=== PATIENT | male | born 1965 | race American Indian/Alaskan Native ===

== ENCOUNTER 2021-08-09 11:47 | Inpatient (IN) | payer OTHER, MEDICARE ==
--- NOTE | 2021-08-09 14:10 | Emergency Department Report ---
HPI - General Chief Complaint: Altered Mental Status Time Seen by Provider: 08/09/21 13:15 - HPI HPI: 55-year-old male with history of DM 2 and ESRD on HD is brought in by EMS after he experienced a syncopal episode during dialysis. The patient was also apparently confused according to the EMS report. No further details were given on report. When asked the reason why the patient was brought to the hospital, the patient claims that it is because he has low oxygen levels. He has no memory of experiencing a syncopal episode or of being brought to the hospital for that reason. He provides further history saying that he was in the hospital at [facility] and was discharged recently. It is unclear why the patient was admitted to the hospital. He also says he was diagnosed with COVID- 19 approximately 1 week ago while at [facility]. The patient himself denies experiencing any symptoms or complaints including headache, vision change, neck pain/stiffness, chest pain, shortness of breath, cough, abdominal pain, focal weakness, sensory changes, or any other complaints ED Past Medical Hx - Past Medical History Previous Medical History?: Yes Hx Hypertension: Yes Hx Heart Attack/AMI: Yes (with stent placement) Hx Diabetes: Yes Hx Renal Disease: Yes Additional medical history: ESRD. CKD. anemia. HLD - Surgical History Past Surgical History?: Yes Hx Coronary Stent: Yes Additional Surgical History: AV graft placement ED Review of Systems ROS: Stated complaint: AMS Other details as noted in HPI Constitutional: denies: chills, fever Eyes: denies: eye pain, vision change ENT: denies: throat pain, congestion Respiratory: denies: cough, shortness of breath Cardiovascular: denies: chest pain, palpitations Gastrointestinal: denies: abdominal pain, nausea, vomiting, diarrhea, melena, hematochezia Genitourinary: frequency. denies: dysuria Musculoskeletal: denies: back pain, joint swelling Skin: denies: rash, lesions Neurological: denies: headache, weakness, numbness, confusion Psychiatric: denies: anxiety, depression Physical Exam - Physical Exam Vital Signs: Vital Signs 08/09/21 08/09/21 08/09/21 11:57 12:01 12:15 Temperature Pulse Rate 91 H 92 H 86 Respiratory 15 12 Rate Blood Pressure 125/62 111/57 Blood Pressure [Right] O2 Sat by Pulse Oximetry 08/09/21 08/09/21 08/09/21 12:31 12:45 13:01 Temperature Pulse Rate 89 87 86 Respiratory 11 L 11 L 10 L Rate Blood Pressure 116/62 126/60 111/57 Blood Pressure [Right] O2 Sat by Pulse Oximetry 08/09/21 08/09/21 13:46 13:54 Temperature 98.3 F Pulse Rate 89 Respiratory 14 Rate Blood Pressure Blood Pressure 127/64 [Right] O2 Sat by Pulse 90 100 Oximetry Physical Exam: GENERAL: Well developed and well nourished. No acute distress HEAD: Normocephalic. No obvious signs of trauma. ENT: Moist mucous membranes. EYES: Extraocular movements are intact. Pupils are equal round and reactive to light bilaterally NECK: Supple. Full ROM is intact. Trachea is midline. LUNGS: Nonlabored breathing. Equal chest rise bilaterally. Clear to auscultation bilaterally. CARDIOVASCULAR: Regular rate and rhythm. No murmurs or rubs. VASCULAR: Cap refill < 2 seconds. Left forearm fistula with thrill/bruit ABDOMEN: Abdomen is soft and nondistended. There is no significant tenderness, guarding or rebound. SKIN: Skin is warm and dry NEURO: Patient is awake, alert, and oriented. direct care worker II-XII grossly intact. No focal deficits. Normal motor and sensory exam throughout. Normal speech. MUSCULOSKELETAL: No obvious deformities. No significant tenderness. Normal ROM throughout. BACK/SPINE: No midline tenderness or step-offs of the C/T/L spine. No costovertebral angle tenderness. ED Course Vital Signs 08/09/21 08/09/21 08/09/21 11:57 12:01 12:15 Temperature Pulse Rate 91 H 92 H 86 Respiratory 15 12 Rate Blood Pressure 125/62 111/57 Blood Pressure [Right] O2 Sat by Pulse Oximetry 08/09/21 08/09/21 08/09/21 12:31 12:45 13:01 Temperature Pulse Rate 89 87 86 Respiratory 11 L 11 L 10 L Rate Blood Pressure 116/62 126/60 111/57 Blood Pressure [Right] O2 Sat by Pulse Oximetry 08/09/21 08/09/21 13:46 13:54 Temperature 98.3 F Pulse Rate 89 Respiratory 14 Rate Blood Pressure Blood Pressure 127/64 [Right] O2 Sat by Pulse 90 100 Oximetry ED Medical Decision Making - Lab Data Result diagrams: 08/09/21 13:36 08/09/21 15:42 Lab Results 08/09/21 08/09/21 08/09/21 Range/Units 13:36 13:36 13:36 WBC 14.8 H (4.5-11.0) K/mm3 RBC 1.76 L (3.65-5.03) M/mm3 Hgb 6.1 L (11.8-15.2) gm/dl Hct 17.7 L* (35.5-45.6) % MCV 100 H (84-94) fl MCH 34 H (28-32) pg MCHC 34 (32-34) % RDW 13.8 (13.2-15.2) % Plt Count 209 (140-440) K/mm3 Lymph % (Auto) 7.8 L (13.4-35.0) % [place] % (Auto) 8.7 H (0.0-7.3) % Eos % (Auto) 0.2 (0.0-4.3) % Baso % (Auto) 0.7 (0.0-1.8) % Lymph # (Auto) 1.2 (1.2-5.4) K/mm3 [place] # (Auto) 1.3 H (0.0-0.8) K/mm3 Eos # (Auto) 0.0 (0.0-0.4) K/mm3 Baso # (Auto) 0.1 (0.0-0.1) K/mm3 Seg Neutrophils % 82.6 H (40.0-70.0) % Seg Neutrophils # 12.2 H (1.8-7.7) K/mm3 PT (12.2-14.9) Sec. INR (0.87-1.13) APTT (24.2-36.6) Sec. D-Dimer (0-234) ng/mlDDU Sodium 138 (137-145) mmol/L Potassium 4.6 (3.6-5.0) mmol/L Chloride 97.9 L (98-107) mmol/L Carbon Dioxide 23 (22-30) mmol/L Anion Gap 22 mmol/L BUN 61 H (9-20) mg/dL Creatinine 5.1 H (0.8-1.3) mg/dL Estimated GFR 14 ml/min BUN/Creatinine Ratio 12 % Glucose 214 H (75-100) mg/dL POC Glucose (70-105) mg/dL Calcium 8.7 (8.4-10.2) mg/dL Magnesium 2.00 (1.7-2.3) mg/dL Total Bilirubin 0.30 (0.1-1.2) mg/dL Direct Bilirubin < 0.2 (0-0.2) mg/dL Indirect Bilirubin 0.1 mg/dL AST 10 (5-40) units/L ALT 13 (7-56) units/L Alkaline Phosphatase 55 (35-129) units/L Ammonia (25-60) umol/L Lactate Dehydrogenase (91-180) units/L Troponin T 0.329 H* (0.00-0.029) ng/mL C-Reactive Protein (0.00-1.30) mg/dL Total Protein 6.8 (6.3-8.2) g/dL Albumin 3.0 L (3.9-5) g/dL Albumin/Globulin Ratio 0.8 % Triglycerides 227 H (2-149) mg/dL Cholesterol 103 (50-199) mg/dL LDL Cholesterol Direct 40 L (50-130) mg/dL HDL Cholesterol 25 L (40-59) mg/dL Cholesterol/HDL Ratio 4.12 % Salicylates (2.8-20.0) mg/dL Acetaminophen (10.0-30.0) ug/mL Plasma/Serum Alcohol (0-0.07) % 08/09/21 08/09/21 08/09/21 Range/Units 13:36 13:36 13:36 WBC (4.5-11.0) K/mm3 RBC (3.65-5.03) M/mm3 Hgb (11.8-15.2) gm/dl Hct (35.5-45.6) % MCV (84-94) fl MCH (28-32) pg MCHC (32-34) % RDW (13.2-15.2) % Plt Count (140-440) K/mm3 Lymph % (Auto) (13.4-35.0) % [place] % (Auto) (0.0-7.3) % Eos % (Auto) (0.0-4.3) % Baso % (Auto) (0.0-1.8) % Lymph # (Auto) (1.2-5.4) K/mm3 [place] # (Auto) (0.0-0.8) K/mm3 Eos # (Auto) (0.0-0.4) K/mm3 Baso # (Auto) (0.0-0.1) K/mm3 Seg Neutrophils % (40.0-70.0) % Seg Neutrophils # (1.8-7.7) K/mm3 PT 13.5 (12.2-14.9) Sec. INR 0.98 (0.87-1.13) APTT 30.5 (24.2-36.6) Sec. D-Dimer (0-234) ng/mlDDU Sodium (137-145) mmol/L Potassium (3.6-5.0) mmol/L Chloride (98-107) mmol/L Carbon Dioxide (22-30) mmol/L Anion Gap mmol/L BUN (9-20) mg/dL Creatinine (0.8-1.3) mg/dL Estimated GFR ml/min BUN/Creatinine Ratio % Glucose (75-100) mg/dL POC Glucose (70-105) mg/dL Calcium (8.4-10.2) mg/dL Magnesium (1.7-2.3) mg/dL Total Bilirubin (0.1-1.2) mg/dL Direct Bilirubin (0-0.2) mg/dL Indirect Bilirubin mg/dL AST (5-40) units/L ALT (7-56) units/L Alkaline Phosphatase (35-129) units/L Ammonia 13.0 L (25-60) umol/L Lactate Dehydrogenase (91-180) units/L Troponin T (0.00-0.029) ng/mL C-Reactive Protein (0.00-1.30) mg/dL Total Protein (6.3-8.2) g/dL Albumin (3.9-5) g/dL Albumin/Globulin Ratio % Triglycerides (2-149) mg/dL Cholesterol (50-199) mg/dL LDL Cholesterol Direct (50-130) mg/dL HDL Cholesterol (40-59) mg/dL Cholesterol/HDL Ratio % Salicylates < 0.3 L (2.8-20.0) mg/dL Acetaminophen (10.0-30.0) ug/mL Plasma/Serum Alcohol (0-0.07) % 08/09/21 08/09/21 08/09/21 Range/Units 13:36 13:36 14:35 WBC (4.5-11.0) K/mm3 RBC (3.65-5.03) M/mm3 Hgb (11.8-15.2) gm/dl Hct (35.5-45.6) % MCV (84-94) fl MCH (28-32) pg MCHC (32-34) % RDW (13.2-15.2) % Plt Count (140-440) K/mm3 Lymph % (Auto) (13.4-35.0) % [place] % (Auto) (0.0-7.3) % Eos % (Auto) (0.0-4.3) % Baso % (Auto) (0.0-1.8) % Lymph # (Auto) (1.2-5.4) K/mm3 [place] # (Auto) (0.0-0.8) K/mm3 Eos # (Auto) (0.0-0.4) K/mm3 Baso # (Auto) (0.0-0.1) K/mm3 Seg Neutrophils % (40.0-70.0) % Seg Neutrophils # (1.8-7.7) K/mm3 PT (12.2-14.9) Sec. INR (0.87-1.13) APTT (24.2-36.6) Sec. D-Dimer (0-234) ng/mlDDU Sodium (137-145) mmol/L Potassium (3.6-5.0) mmol/L Chloride (98-107) mmol/L Carbon Dioxide (22-30) mmol/L Anion Gap mmol/L BUN (9-20) mg/dL Creatinine (0.8-1.3) mg/dL Estimated GFR ml/min BUN/Creatinine Ratio % Glucose (75-100) mg/dL POC Glucose 201 H (70-105) mg/dL Calcium (8.4-10.2) mg/dL Magnesium (1.7-2.3) mg/dL Total Bilirubin (0.1-1.2) mg/dL Direct Bilirubin (0-0.2) mg/dL Indirect Bilirubin mg/dL AST (5-40) units/L ALT (7-56) units/L Alkaline Phosphatase (35-129) units/L Ammonia (25-60) umol/L Lactate Dehydrogenase (91-180) units/L Troponin T (0.00-0.029) ng/mL C-Reactive Protein (0.00-1.30) mg/dL Total Protein (6.3-8.2) g/dL Albumin (3.9-5) g/dL Albumin/Globulin Ratio % Triglycerides (2-149) mg/dL Cholesterol (50-199) mg/dL LDL Cholesterol Direct (50-130) mg/dL HDL Cholesterol (40-59) mg/dL Cholesterol/HDL Ratio % Salicylates (2.8-20.0) mg/dL Acetaminophen 5.0 L (10.0-30.0) ug/mL Plasma/Serum Alcohol < 0.01 (0-0.07) % 08/09/21 08/09/21 Range/Units 15:42 15:42 WBC (4.5-11.0) K/mm3 RBC (3.65-5.03) M/mm3 Hgb (11.8-15.2) gm/dl Hct (35.5-45.6) % MCV (84-94) fl MCH (28-32) pg MCHC (32-34) % RDW (13.2-15.2) % Plt Count (140-440) K/mm3 Lymph % (Auto) (13.4-35.0) % [place] % (Auto) (0.0-7.3) % Eos % (Auto) (0.0-4.3) % Baso % (Auto) (0.0-1.8) % Lymph # (Auto) (1.2-5.4) K/mm3 [place] # (Auto) (0.0-0.8) K/mm3 Eos # (Auto) (0.0-0.4) K/mm3 Baso # (Auto) (0.0-0.1) K/mm3 Seg Neutrophils % (40.0-70.0) % Seg Neutrophils # (1.8-7.7) K/mm3 PT (12.2-14.9) Sec. INR (0.87-1.13) APTT (24.2-36.6) Sec. D-Dimer 582.79 H (0-234) ng/mlDDU Sodium (137-145) mmol/L Potassium (3.6-5.0) mmol/L Chloride (98-107) mmol/L Carbon Dioxide (22-30) mmol/L Anion Gap mmol/L BUN (9-20) mg/dL Creatinine (0.8-1.3) mg/dL Estimated GFR ml/min BUN/Creatinine Ratio % Glucose 223 H (75-100) mg/dL POC Glucose (70-105) mg/dL Calcium (8.4-10.2) mg/dL Magnesium (1.7-2.3) mg/dL Total Bilirubin (0.1-1.2) mg/dL Direct Bilirubin (0-0.2) mg/dL Indirect Bilirubin mg/dL AST (5-40) units/L ALT (7-56) units/L Alkaline Phosphatase (35-129) units/L Ammonia (25-60) umol/L Lactate Dehydrogenase 252 H (91-180) units/L Troponin T (0.00-0.029) ng/mL C-Reactive Protein 1.10 (0.00-1.30) mg/dL Total Protein (6.3-8.2) g/dL Albumin (3.9-5) g/dL Albumin/Globulin Ratio % Triglycerides (2-149) mg/dL Cholesterol (50-199) mg/dL LDL Cholesterol Direct (50-130) mg/dL HDL Cholesterol (40-59) mg/dL Cholesterol/HDL Ratio % Salicylates (2.8-20.0) mg/dL Acetaminophen (10.0-30.0) ug/mL Plasma/Serum Alcohol (0-0.07) % - Medical Decision Making 55-year-old male with history of diabetes and ESRD on dialysis brought in by EMS after he experienced a syncopal episode during dialysis. Patient has no memory of this event and thinks that he was brought to the hospital for low oxygen levels. It is therefore unclear whether the patient is confused, or simply amnesic to the event. He denies experiencing any symptoms or complaints. On initial assessment he is noted to be afebrile and with normal vital signs. He is ANO x4. He has a nonfocal neurologic exam. There are no other significant abnormalities on physical examination. We will perform broad work-up with full set of labs as well as, CXR, EKG, and CT of the head to assess for evidence of intracranial bleeding versus ischemia versus other intracranial abnormality to explain the patient's syncope and/or possible confusion. Shortly after my initial assessment of the patient, I was walking by his room and noted that his oxygen saturation was 88% on room air with a good waveform. This corrected immediately with 2L via NC. This is when the patient provided further history that he was hospitalized at [facility] where he was diagnosed with Covid 19 last week but was still discharged a few days ago. The patient's nurse spoke to the patient's who provided further history saying that he was admitted for an MA on at [facility] and was discharged Friday, 2 days ago. Given that the patient is hypoxic, presented after syncopal episode, and was diagnosed with COVID-19 I am concerned for possible PE. Given that I would like to obtain CTA of the chest I have placed a consult to the patient's case management social worker, Dr. Mccauley CT of the head reveals no acute abnormalities I spoke with Dr. Mccauley over the phone at 2:57 PM and he stated that it is okay for the patient to undergo CTA of the chest and that he does not need emergent dialysis today but that after the patient is admitted they will reassess his need for HD. Labs have resulted and reveal leukocytosis of 14.8. The patient also has a hemoglobin of 6.1 from unknown baseline. Creatinine is 5.1, BUN is 61, and troponin is slightly elevated at 0.329 which is likely secondary to ESRD as well as the patient's ongoing hypoxia. Given the patient's marked anemia, I went to discuss further with the patient he denies experiencing any abdominal pain, diarrhea, melena, or hematochezia. Rectal exam was performed with the nurse present as a geochemical manager and reveals normal-appearing brown stool but which is Hemoccult positive. Given the presence of GI bleeding with hemoglobin less than 7 I have ordered transfusion of 1 unit of PRBCs. We will give 80 mg of IV Protonix and consult GI for further recommendations. At 3:48 PM I spoke with Dr. Moreno of gastroenterology who agrees with current plan of management. He will provide further recommendations for the patient as an inpatient. Chest x-ray reveals bibasilar opacities most consistent with pulmonary edema versus pneumonia. There is also a small left pleural effusion. We will proceed with CTA of the chest to assess for evidence of pulmonary embolism and to further characterize opacities seen on chest x-ray. Given p ossibility COVID-19 pneumonia versus secondary bacterial pneumonia which was hospital acquired, I have ordered broad-spectrum IV vancomycin and cefepime. Given that the patient's Covid diagnosis has not been confirmed, I will hold off on giving steroids and defer to the inpatient team for choice of management. The patient will be admitted to the hospital for further work-up and management. He expressed understanding agreement with this plan of care. At [address] with [address] Cronin, the on-call hospitalist regarding the case. He accepts the patient for admission will assume care. He understands that CTA of the chest and urinalysis are still pending. Critical Care Time: Yes Critical care time in (mins) excluding proc time.: 50 Critical care attestation.: If time is entered above; I have spent that time in minutes in the direct care of this critically ill patient, excluding procedure time. Critical care time was spent in the evaluation/assessment, work-up, and management of syncope, hypoxia requiring supplemental oxygen, anemia requiring transfusion of blood, as well as multiple consultations and discussions with specialists and frequent reevaluation and reassessment ED Disposition Clinical Impression: GI bleed, Suspected COVID-19 virus infection, Hypoxia, Elevated troponin, Anemia, Pneumonia, Syncope Disposition: 09 ADMITTED INPATIENT Is pt being admited?: Yes Condition: Fair Instructions: Bacterial Pneumonia (ED), Syncope (ED) Referrals: ROSALIO ENRIQUE [Other] - 3-5 Days
--- NOTE | 2021-08-09 14:28 | Cat Scan Report ---
NONENHANCED CT SCAN OF THE HEAD: INDICATION / CLINICAL INFORMATION: 55 years Male; AMS, syncope. TECHNIQUE: Routine CT head without contrast. All CT scans at this location are performed using CT dos e reduction for ALARA by means of automated exposure control. COMPARISON: None. FINDINGS: BRAIN / INTRACRANIAL CONTENTS: No acute hemorrhage, mass effect, midline shift, hydrocephalus, or acu te, large territorial infarct. No chronic infarct or focal atrophy. High convexity cortical sulci are normal CRANIOCERVICAL JUNCTION: No significant abnormality. ORBITS: No significant abnormality of visualized orbits. SINUSES / MASTOIDS: No significant abnormality of the visualized paranasal sinuses or mastoid air nay ls. ADDITIONAL FINDINGS: Minimal scalp thickening in the right posterior parietal area IMPRESSION: No focal mass, hemorrhage, hydrocephalus, or acute, large territorial infarct Signer Name: Terri Patel MD Signed: 08/09/2021 2:23 PM Workstation Name: [id number]
[2021-08-09 14:40] LABS: Calcium 8.7 mg/dL (8.4-10.2)
[2021-08-09 14:45] LABS: Alanine Aminotransferase 13 units/L (7-56)
[2021-08-09 14:46] LABS: Bilirubin,Direct < 0.2 mg/dL (0-0.2)
--- NOTE | 2021-08-09 15:00 | Emergency Department Report ---
Blank Doc - Documentation Documentation: Nephrology consulted for ESRD needs. Patient is COVID19+, received HD today per usual schedule but noted to be unresponsive at end of treatment. Note plan for CT-angio for PE rule out. No immediate indication for repeat HD today post contrast in ESRD patient, with stable electrolytes noted. Will follow patient while inpatient to determine HD needs per labs/volume assessment
[2021-08-09 15:03] LABS: Basophils # (Auto) 0.1 K/mm3 (0.0-0.1); Basophils % (Auto) 0.7 % (0.0-1.8); Eosinophils % (Auto) 0.2 % (0.0-4.3); Hemoglobin 6.1 gm/dl (11.8-15.2); Lymphocytes # (Auto) 1.2 K/mm3 (1.2-5.4); Lymphocytes % (Auto) 7.8 % (13.4-35.0); Mean Corpuscular HGB Conc 34 % (32-34); Mean Corpuscular Volume 100 fl (84-94); Monocytes # (Auto) 1.3 K/mm3 (0.0-0.8); Monocytes % (Auto) 8.7 % (0.0-7.3); Platelet Count 209 K/mm3 (140-440); Red Blood Count 1.76 M/mm3 (3.65-5.03); Red Cell Distribution Width 13.8 % (13.2-15.2)
[2021-08-09 15:25] LABS: INR 0.98 (0.87-1.13)
[2021-08-09 15:26] LABS: Partial Thromboplastin Time 30.5 Sec. (24.2-36.6)
[2021-08-09] MEDS ORDERED: SODIUM CHLORIDE 0.9% 500 ML 500 ML IV ONE (15:32)
[2021-08-09] MEDS ORDERED: PANTOPRAZOLE 40 MG INJ IV ONE (15:33)
--- NOTE | 2021-08-09 15:44 | XRay Report ---
XR chest 1V ap INDICATION / CLINICAL INFORMATION: low O2 sat. COMPARISON: None available. FINDINGS: SUPPORT DEVICES: None. HEART /PULMONARY VASCULATURE: Cardiac silhouette is accentuated. LUNGS / PLEURA: Patchy bibasilar pulmonary airspace opacities, greater on the left, with small left p leural effusion. No pneumothorax. ADDITIONAL FINDINGS: No significant additional findings. IMPRESSION: Small left pleural effusion with bibasilar pulmonary airspace opacities, may reflect pulmonary edema in the setting of CHF or could reflect pneumonia. Signer Name: Segundo Sanchez MD Signed: 08/09/2021 3:40 PM Workstation Name: [id number]
[2021-08-09 15:55] LABS: Chol/HDL Ratio 4.12 %; HDL Cholesterol 25 mg/dL (40-59); LDL Cholesterol,Direct 40 mg/dL (50-130)
[2021-08-09 15:59] LABS: Hematocrit 17.7 % (35.5-45.6)
[2021-08-09] MEDS ORDERED: VANCOMYCIN 1,750 MG in SODIUM CHLORIDE 0.9% 500 ML 500 ML IV ONE (16:01)
[2021-08-09] MEDS ORDERED: CEFEPIME/NS 2 GM/100 ML 2 GM/100 ML BAG IV ONE (16:02)
[2021-08-09 16:23] LABS: C-Reactive Protein 1.1 mg/dL (0.00-1.30)
[2021-08-09] MEDS ORDERED: CEFEPIME/NS 2 GM/100 ML 2 GM/100 ML BAG IV SCH (17:00)
[2021-08-09] MEDS ORDERED: SODIUM CHLORIDE 0.9% 500 ML 500 ML IV SCH (17:00)
[2021-08-09] MEDS ORDERED: PANTOPRAZOLE 40 MG INJ IV SCH (17:00)
--- NOTE | 2021-08-09 19:02 | Consultation ---
History of Present Illness - Reason for Consult Consult date: 08/09/21 end stage renal disease - History of Present Illness This is a 55 year-old man with ESRD who presents for loss of consciousness Patient usually dialyzes // at [facility]; usually is at [facility] under care of Dr. Sahu but has been at [facility] due to COVID-19 diagnosis. Last HD was earlier today, he notes that HD itself was going well without dizziness, lightheadedness, cramping, chest pain on HD. However, towards the end of treatment, he began feeling short of breath, was noting to be satting in the 80s, and per report at dialysis unit passed out. EMS called and brought to ED. Currently, patient denies any issues including edema, access issues, nausea, vomiting, headaches. Notes ongoing dyspnea, feels that he needs chronic oxygen, was recently at [facility] for similar issues. Past History Past Medical History: ESRD, hypertension Past Surgical History: No surgical history Social history: no significant social history Family history: no significant family history Medications and Allergies Allergies Allergy/AdvReac Type Severity Reaction Status Date / Time No Known Allergies Allergy Unverified 08/09/21 13:17 Active Meds: Active Medications Cefepime HCl (Cefepime/Ns 2 Gm/100 Ml) 2 gm in 100 mls @ 200 mls/hr IV ONCE@1700 SARAH; Protocol Stop: 08/09/21 21:00 Sodium Chloride (Nacl 0.9% 500 Ml) 500 mls @ 0 mls/hr IV ONCE@1700 SARAH Stop: 08/09/21 21:00 Pantoprazole Sodium (Pantoprazole 40 Mg Inj) 80 mg IV ONCE@1700 SARAH Stop: 08/09/21 21:00 Review of Systems All systems: negative (as per HPI) Exam - Vital Signs Vital signs: Vital Signs Pulse 91 H 08/09/21 11:57 - Physical Exam Narrative exam: Constitutional: no acute distress Head: NC/AT Neck: supple Lungs: mildly labored breathing CV: RRR, no M/R/G Abdomen: soft, non-tender, bowel sounds present Back: nontender Extremities: no edema, pulses WNL Skin: intact Neuro: no focal deficits, alert and oriented x4 Results - Lab Results 08/09/21 13:36 08/09/21 15:42 Most recent lab results Calcium 8.7 mg/dL (8.4-10.2) 08/09/21 13:36 Magnesium 2.00 mg/dL (1.7-2.3) 08/09/21 13:36 Assessment and Plan This is a 55 year old man who presents with loss of consciousness at end of HD today # ESRD: next HD prn based on labs/volume, currently without acute need for HD, did get essentially full session today. No HD post contrast necessary unless there are specific indications from labs/volume assessment - daily labs - renally dose meds - avoid nephrotoxins - renal diet - verbal consent obtained for HD # Anemia: last hemoglobin 6.1, agree with PRBCs, will continue ESAs with HD prn, monitor volume status closely # HTN: UF as tolerated. BP stable # Secondary Hyperparathyroidism: continue home binders as needed # COVID-19: management per primary
[2021-08-09] MEDS ORDERED: ACETAMINOPHEN 325 MG TAB PO PRN (20:44)
[2021-08-09] MEDS ORDERED: ONDANSETRON 4 MG/2 ML INJ IV PRN (20:44)
--- NOTE | 2021-08-09 20:44 | History and Physical Report ---
History of Present Illness Date of examination: 08/09/21 Date of admission: 08/09/21 18:12 Chief complaint: Syncopal episode x1 History of present illness: 55-year-old male with history of diabetes and end-stage renal disease had a syncopal episode during dialysis. Post syncopal episode patient is confused. Patient also apparently had a low oxygen level. Patient has no memory of experiencing the syncopal episode or being brought to the hospital. Patient was in [facility] recently and was discharged. Patient was apparently diagnosed with COVID-19 1 week ago at [facility]. No chest pain. No fever. No chills. Generalized weakness present. No exacerbating or relieving factors. - Past Medical History --Previous Medical History?: Yes --Hypertension: Yes --Heart Attack/AMI: Yes (with stent placement) --Diabetes: Yes --Renal Disease: Yes --Additional medical history: ESRD. CKD. anemia. HLD - Surgical History --Past Surgical History?: Yes --Coronary Stent: Yes --Additional Surgical History: AV graft placement -Social history --no alcohol or smoking - Family history --Htn Review of Systems ROS: Stated complaint: AMS Other details as noted in HPI Constitutional: denies: chills, fever Eyes: denies: eye pain, vision change ENT: denies: throat pain, congestion Respiratory: denies: cough, shortness of breath Cardiovascular: denies: chest pain, palpitations Gastrointestinal: denies: abdominal pain, nausea, vomiting, diarrhea, melena, hematochezia Genitourinary: frequency. denies: dysuria Musculoskeletal: denies: back pain, joint swelling Skin: denies: rash, lesions Neurological: denies: headache, weakness, numbness, confusion Psychiatric: denies: anxiety, depression Past History Past Medical History: ESRD, hypertension Past Surgical History: No surgical history Social history: no significant social history Family history: no significant family history Medications and Allergies Allergies Allergy/AdvReac Type Severity Reaction Status Date / Time No Known Allergies Allergy Unverified 08/09/21 13:17 Active Meds: Active Medications Cefepime HCl (Cefepime/Ns 2 Gm/100 Ml) 2 gm in 100 mls @ 200 mls/hr IV ONCE@1700 SARAH; Protocol Stop: 08/09/21 21:00 Sodium Chloride (Nacl 0.9% 500 Ml) 500 mls @ 0 mls/hr IV ONCE@1700 SARAH Stop: 08/09/21 21:00 Pantoprazole Sodium (Pantoprazole 40 Mg Inj) 80 mg IV ONCE@1700 SARAH Stop: 08/09/21 21:00 Exam - Constitutional Vitals: Temp Pulse Resp BP Pulse Ox 98.3 F 100 H 20 130/78 98 08/09/21 13:46 08/09/21 20:01 08/09/21 20:21 08/09/21 20:01 08/09/21 20:21 General appearance: Present: no acute distress, well-nourished - EENT Eyes: Present: PERRL ENT: hearing intact, clear oral mucosa - Neck Neck: Present: supple, normal ROM - Respiratory Respiratory effort: normal Respiratory: bilateral: CTA - Cardiovascular Heart rate: 80 Rhythm: regular Heart Sounds: Present: S1 & S2. Absent: rub, click - Extremities Extremities: pulses symmetrical, No edema Peripheral Pulses: within normal limits - Abdominal General gastrointestinal: Present: soft, non-tender, non-distended, normal bowel sounds Male genitourinary: Present: normal - Rectal Rectal Exam: stool brown (Occult blood positive) - Integumentary Integumentary: Present: clear, warm, dry - Musculoskeletal Musculoskeletal: gait normal, strength equal bilaterally - Psychiatric Psychiatric: appropriate mood/affect, intact judgment & insight - Neurologic Neurologic: CNII-XII intact, moves all extremities - Allied Health Allied health notes reviewed: nursing HEART Score - HEART Score History: Slightly suspicious Age: 45-65 Risk factors: > 3 risk factors or hx of atherosclerotic disease Troponin: Troponin T 0.349 ng/mL (0.00-0.029) H* 08/09/21 18:16 Troponin: 1-3x normal limit - Critical Actions Critical Actions: 0-3 pts:0.9-1.7%risk of adverse cardiac event.Candidate for discharge Results - Labs CBC & Chem 7: 08/10/21 04:44 08/10/21 04:44 Labs: Laboratory Last Values WBC 14.8 K/mm3 (4.5-11.0) H 08/09/21 13:36 RBC 1.76 M/mm3 (3.65-5.03) L 08/09/21 13:36 Hgb 6.1 gm/dl (11.8-15.2) L 08/09/21 13:36 Hct 17.7 % (35.5-45.6) L* 08/09/21 13:36 MCV 100 fl (84-94) H 08/09/21 13:36 MCH 34 pg (28-32) H 08/09/21 13:36 MCHC 34 % (32-34) 08/09/21 13:36 RDW 13.8 % (13.2-15.2) 08/09/21 13:36 Plt Count 209 K/mm3 (140-440) 08/09/21 13:36 Lymph % (Auto) 7.8 % (13.4-35.0) L 08/09/21 13:36 [place] % (Auto) 8.7 % (0.0-7.3) H 08/09/21 13:36 Eos % (Auto) 0.2 % (0.0-4.3) 08/09/21 13:36 Baso % (Auto) 0.7 % (0.0-1.8) 08/09/21 13:36 Lymph # (Auto) 1.2 K/mm3 (1.2-5.4) 08/09/21 13:36 [place] # (Auto) 1.3 K/mm3 (0.0-0.8) H 08/09/21 13:36 Eos # (Auto) 0.0 K/mm3 (0.0-0.4) 08/09/21 13:36 Baso # (Auto) 0.1 K/mm3 (0.0-0.1) 08/09/21 13:36 Seg Neutrophils % 82.6 % (40.0-70.0) H 08/09/21 13:36 Seg Neutrophils # 12.2 K/mm3 (1.8-7.7) H 08/09/21 13:36 PT 13.5 Sec. (12.2-14.9) 08/09/21 13:36 INR 0.98 (0.87-1.13) 08/09/21 13:36 APTT 30.5 Sec. (24.2-36.6) 08/09/21 13:36 D-Dimer 582.79 ng/mlDDU (0-234) H 08/09/21 15:42 Sodium 138 mmol/L (137-145) 08/09/21 13:36 Potassium 4.6 mmol/L (3.6-5.0) 08/09/21 13:36 Chloride 97.9 mmol/L (98-107) L 08/09/21 13:36 Carbon Dioxide 23 mmol/L (22-30) 08/09/21 13:36 Anion Gap 22 mmol/L 08/09/21 13:36 BUN 61 mg/dL (9-20) H 08/09/21 13:36 Creatinine 5.1 mg/dL (0.8-1.3) H 08/09/21 13:36 Estimated GFR 14 ml/min 08/09/21 13:36 BUN/Creatinine Ratio 12 % 08/09/21 13:36 Glucose 223 mg/dL (75-100) H 08/09/21 15:42 POC Glucose 201 mg/dL (70-105) H 08/09/21 14:35 Calcium 8.7 mg/dL (8.4-10.2) 08/09/21 13:36 Magnesium 2.00 mg/dL (1.7-2.3) 08/09/21 13:36 Ferritin 3300.0 ng/mL (30.0-300.0) H 08/09/21 15:42 Total Bilirubin 0.30 mg/dL (0.1-1.2) 08/09/21 13:36 Direct Bilirubin < 0.2 mg/dL (0-0.2) 08/09/21 13:36 Indirect Bilirubin 0.1 mg/dL 08/09/21 13:36 AST 10 units/L (5-40) 08/09/21 13:36 ALT 13 units/L (7-56) 08/09/21 13:36 Alkaline Phosphatase 55 units/L (35-129) 08/09/21 13:36 Ammonia 13.0 umol/L (25-60) L 08/09/21 13:36 Lactate Dehydrogenase 252 units/L (91-180) H 08/09/21 15:42 Troponin T 0.349 ng/mL (0.00-0.029) H* 08/09/21 18:16 C-Reactive Protein 1.10 mg/dL (0.00-1.30) 08/09/21 15:42 Total Protein 6.8 g/dL (6.3-8.2) 08/09/21 13:36 Albumin 3.0 g/dL (3.9-5) L 08/09/21 13:36 Albumin/Globulin Ratio 0.8 % 08/09/21 13:36 Triglycerides 227 mg/dL (2-149) H 08/09/21 13:36 Cholesterol 103 mg/dL (50-199) 08/09/21 13:36 LDL Cholesterol Direct 40 mg/dL (50-130) L 08/09/21 13:36 HDL Cholesterol 25 mg/dL (40-59) L 08/09/21 13:36 Cholesterol/HDL Ratio 4.12 % 08/09/21 13:36 Salicylates < 0.3 mg/dL (2.8-20.0) L 08/09/21 13:36 Acetaminophen 5.0 ug/mL (10.0-30.0) L 08/09/21 13:36 Plasma/Serum Alcohol < 0.01 % (0-0.07) 08/09/21 13:36 Blood Type AB NEGATIVE 08/09/21 15:42 Antibody Screen Negative 08/09/21 15:42 Crossmatch See Detail 08/09/21 15:42 Short CBC 08/09/21 08/09/21 08/10/21 Range/Units 13:36 20:25 04:44 WBC 14.8 H 12.2 H (4.5-11.0) K/mm3 Hgb 6.1 L 5.8 L* 5.6 L* (11.8-15.2) gm/dl Hct 17.7 L* 17.4 L* 16.7 L* (35.5-45.6) % Plt Count 209 175 (140-440) K/mm3 BMP 08/09/21 08/09/21 08/10/21 13:36 15:42 04:44 Sodium 138 138 Potassium 4.6 5.0 Chloride 97.9 L 100.0 Carbon Dioxide 23 26 BUN 61 H 87 H Creatinine 5.1 H 6.6 H Glucose 214 H 223 H 251 H Calcium 8.7 8.3 L Cardiac Enzymes 08/09/21 08/09/21 Range/Units 13:36 18:16 Troponin T 0.329 H* 0.349 H* (0.00-0.029) ng/mL Liver Function 08/09/21 08/10/21 Range/Units 13:36 04:44 Total Bilirubin 0.30 0.30 (0.1-1.2) mg/dL Direct Bilirubin < 0.2 (0-0.2) mg/dL AST 10 9 (5-40) units/L ALT 13 10 (7-56) units/L Alkaline Phosphatase 55 45 (35-129) units/L Albumin 3.0 L 2.7 L (3.9-5) g/dL Microbiology: Microbiology 08/09/21 15:25 Stool Stool Occult Blood (LULU) - Final - Imaging and Cardiology EKG: report reviewed (Sinus rhythm no acute ST-T wave changes) Imaging and Cardiology: Head CT No focal mass, hemorrhage, hydrocephalus or acute large territorial infarct Chest x-ray Small left pleural effusion with bibasilar pulmonary airspace opacities may reflect pulmonary edema in the setting of atrial for could reflect pneumonia. Assessment and Plan Advance Directives: Yes - Patient Problems (1) Symptomatic anemia Current Visit: Yes Status: Acute Plan to address problem: Patient will transfuse 1 to 2 units of packed red blood cells Anemia secondary to multifactorial reasons including end-stage renal disease and slow GI bleed (2) Syncope Current Visit: Yes Status: Acute Plan to address problem: Secondary to anemia Syncope work-up including echocardiogram (3) Suspected COVID-19 virus infection Current Visit: Yes Status: Acute Plan to address problem: Patient had Covid pneumonia a week ago Coronavirus PCR in a.m. (4) GI bleed Current Visit: Yes Status: Chronic Qualifiers: GI bleed type/associated pathology: gastrointestinal hemorrhage with hemateme sis Qualified Code(s): K92.0 - Hematemesis Plan to address problem: Patient has a adenomatous polyp in the ascending colon near the ileocecal valve Colonoscopy done by Dr. Mims in January 2021 (5) End stage renal disease on dialysis Current Visit: Yes Status: Chronic Plan to address problem: Nephrology consulted for hemodialysis (6) Hypertension Current Visit: Yes Status: Chronic Qualifiers: Hypertension type: primary hypertension Qualified Code(s): I10 - Essential (primary) hypertension Plan to address problem: Antihypertensives and adjust medications as necessary (7) T2DM (type 2 diabetes mellitus) Current Visit: Yes Status: Chronic Qualifiers: Diabetes mellitus machine long goods helper insulin use: unspecified machine long goods helper insulin use status Plan to address problem: Coverage for now and check hemoglobin A1c (8) DVT prophylaxis Current Visit: Yes Status: Acute Plan to address problem: On SCDs and GI prophylaxis
[2021-08-09] MEDS ORDERED: oxyCODONE /ACETAMINOPHEN 5-325MG TAB PO PRN (20:53)
[2021-08-09] MEDS ORDERED: HYDROmorphone 1 MG/1 ML INJ IV PRN (20:53)
[2021-08-09 21:21] LABS: Hematocrit 17.4 % (35.5-45.6); Hemoglobin 5.8 gm/dl (11.8-15.2)
[2021-08-09] MEDS ORDERED: FAMOTIDINE 10 MG TAB PO SCH (22:00)
[2021-08-09] MEDS ORDERED: FAMOTIDINE 20 MG TAB PO SCH (22:00)
[2021-08-10 05:45] LABS: Basophils # (Auto) 0.1 K/mm3 (0.0-0.1); Basophils % (Auto) 0.6 % (0.0-1.8); Eosinophils % (Auto) 0.1 % (0.0-4.3); Lymphocytes # (Auto) 1.3 K/mm3 (1.2-5.4); Lymphocytes % (Auto) 10.3 % (13.4-35.0); Mean Corpuscular HGB Conc 34 % (32-34); Mean Corpuscular Volume 101 fl (84-94); Monocytes # (Auto) 1.4 K/mm3 (0.0-0.8); Monocytes % (Auto) 11.7 % (0.0-7.3); Platelet Count 175 K/mm3 (140-440); Red Blood Count 1.66 M/mm3 (3.65-5.03); Red Cell Distribution Width 14.1 % (13.2-15.2)
[2021-08-10 06:13] LABS: Albumin 2.7 g/dL (3.9-5); Calcium 8.3 mg/dL (8.4-10.2)
[2021-08-10 06:32] LABS: Hemoglobin 5.6 gm/dl (11.8-15.2)
[2021-08-10 06:33] LABS: Hematocrit 16.7 % (35.5-45.6)
[2021-08-10] MEDS ORDERED: SODIUM CHLORIDE 0.9% 500 ML 500 ML IV ONE (06:39)
--- NOTE | 2021-08-10 06:43 | Gastroenterology Consultation ---
History of Present Illness - Reason for Consult Consult date: 08/10/21 [facility] [place] Requesting physician: ALBERTA PATRICIO - History of Present Illness This is a pleasant 55-year-old male with history of DM 2 and ESRD on HD is brought in by EMS after he experienced a syncopal episode during dialysis. Also found to be severely anemic, ER rectal exam showed brown stool but occult blood positive Hemoglobin on discharge on 08/07 was 7.6 outside records from [place] reviewed and pertinent records copied below Patient denies overt bleeding Hasn't had EGD in the past, recent colon as below Discharge summary from [facility], [place] dated 08/07/2021 Robel Mcclure a 55-year-old AAM with high blood pressure, diabetes, end- stage renal disease on hemodialysis, coronary artery disease status post stent in 19, not vaccinated against COVID-19 came to the emergency room because of shortness of breath, cough for 2 days. Patient has also intermittent chest pain for 2 weeks. The pain is 4/10 intensity. No chest pain during my examination. Patient was found to have elevated troponin. He was also diagnosed with COVID-19 pneumonia. He is not hypoxic. Hospital service was called for admission and further management. Patient denies any fever, chills. He denies nausea, vomiting, diarrhea. He denies headache or dizziness. 07/27 patient is currently on 4 L/min of oxygen. I called and updated pts via phone. 07/28 Pt is currently on 8L/min of oxygen via salter [id number] - [place] male with high blood pressure, diabetes, end-stage renal disease on hemodialysis, coronary artery disease status post stent in 19, not vaccinated against COVID-19 came to the emergency room because of shortness of breath, cough for 2 days. Patient has also intermittent chest pain for 2 weeks. The pain is 4/10 intensity. No chest pain during my examination. Patient was found to have elevated troponin. He was also diagnosed with COVID-19 pneumonia. He is not hypoxic. Hospital service was called for admission and further management. Patient denies any fever, chills. He denies nausea, vomiting, diarrhea. He denies headache or dizziness. 07/27 patient is currently on 4 L/min of oxygen. I called and updated pts via phone. 07/28 Pt is currently on 8L/min of oxygen via salter cannula 07/29: cont Decadron/O2 support, iHD, Heparin gtt -- possible [facility] tmrw 07/30: overnight ABG with significant hypoxia, now on HFNC. ICU consulted.Start empiric axbs (?HAP). Updated pt's Sofiya by phone @12:25pm. 07/31: cont to try to wean, reduce blood draws as able per pt request 08/01: weaned to salter, try to minimize blood draws, downgrade and cont to wean 08/02 on 6 L/min of oxygen via cannula 08/03 patient is currently on 6 to 10 L of oxygen via [place] cannula. We will wean off as tolerated 08/04 patient is currently on 10 L/min of oxygen via [place] cannula. We will wean off as tolerated. session of hemodialysis today 08/05 patient is currently on 6 L/min of oxygen via [place] cannula 08/06 patient is currently on 10 L/min of oxygen via [place]ter cannula. Encourage incentive spirometry and proning 08/07: weaned to 2L. Walk test done and does not need oxygen. The patient said he was going home and did not want physical therapy. Recommended staying for PT but he says he is at baseline and did not want to walk more than 2 minutes. Will dc home today Colonoscopy 01/[address] Mims 1.2cm sessile ascending colon polypproximal to ileocecal valve andremoved with snare cautery polypectomy 2.5-3.5cm polyp vs lipoma approximately 50cm from anal verge in sigmoid colon andcold forcepsbiopsies done to further evaluate Internal hemorrhoids RECOMMENDATIONS: Resume antiplatlet therapy per cardiology High fiber diet Await pathology May need surgery if sigmoid colon has adenomatous pathology Follow up in GI clinic within 2wks with [facility] gastroenterology specialists Colon, ascending, biopsy: Tubular adenoma. B. Colon, sigmoid, biopsy: Focal erosion and fibrosis. No adenoma or neoplasm identified Past History Past Medical History: ESRD, hypertension Past Surgical History: No surgical history Social history: no significant social history Family history: no significant family history Medications and Allergies Allergies Allergy/AdvReac Type Severity Reaction Status Date / Time No Known Allergies Allergy Unverified 08/09/21 13:17 Active Meds: Active Medications Acetaminophen (Acetaminophen 325 Mg Tab) 650 mg PO Q4H PRN PRN Reason: Pain MILD(1-3)/Fever >100.5/LIN Famotidine (Famotidine 10 Mg Tab) 10 mg PO BID [facility] Last Admin: 08/10/21 02:51 Dose: Not Given Documented by: Hydromorphone HCl (Hydromorphone 1 Mg/1 Ml Inj) 0.5 mg IV Q3H PRN PRN Reason: Pain , Severe (7-10) Sodium Chloride (Nacl 0.9% 500 Ml) 500 mls @ 0 mls/hr IV ONCE ONE Stop: 08/10/21 06:40 Ondansetron HCl (Ondansetron 4 Mg/2 Ml Inj) 4 mg IV Q8H PRN PRN Reason: Nausea And Vomiting Oxycodone/Acetaminophen (Oxycodone /Acetaminophen 5-325mg Tab) 1 tab PO Q6H PRN PRN Reason: Pain, Moderate (4-6) Sodium Chloride (Sodium Chloride 0.9% 10 Ml Flush Syringe) 10 ml IV BID [facility] Last Admin: 08/10/21 01:15 Dose: 10 ml Documented by: Sodium Chloride (Sodium Chloride 0.9% 10 Ml Flush Syringe) 10 ml IV PRN PRN PRN Reason: LINE FLUSH Review of Systems - Review of Systems All systems: negative (12 systems reviewed and neg except as mentioned in hpi) Exam - Constitutional Vital Signs: Temp Pulse Resp BP Pulse Ox 98.1 F 94 H 20 160/42 100 08/10/21 00:56 08/10/21 04:00 08/10/21 00:56 08/10/21 04:00 08/10/21 05:01 General appearance: no acute distress - EENT Eyes: EOM intact ENT: hearing intact - Neck Neck: supple - Respiratory Respiratory effort: normal - Cardiovascular Rhythm: regular - Gastrointestinal General gastrointestinal: Present: soft - Integumentary Integumentary: Present: dry - Musculoskeletal Musculoskeletal: normal - Neurologic Neurological: alert and oriented x3 - Psychiatric Psychiatric: appropriate mood/affect - Labs CBC & Chem 7: 08/10/21 04:44 08/10/21 04:44 Lab Results: Laboratory Results - last 24 hr 08/09/21 08/09/21 08/09/21 13:36 13:36 13:36 WBC 14.8 H RBC 1.76 L Hgb 6.1 L Hct 17.7 L* MCV 100 H MCH 34 H MCHC 34 RDW 13.8 Plt Count 209 Lymph % (Auto) 7.8 L [place] % (Auto) 8.7 H Eos % (Auto) 0.2 Baso % (Auto) 0.7 Lymph # (Auto) 1.2 [place] # (Auto) 1.3 H Eos # (Auto) 0.0 Baso # (Auto) 0.1 Seg Neutrophils % 82.6 H Seg Neutrophils # 12.2 H PT INR APTT D-Dimer Sodium 138 Potassium 4.6 Chloride 97.9 L Carbon Dioxide 23 Anion Gap 22 BUN 61 H Creatinine 5.1 H Estimated GFR 14 BUN/Creatinine Ratio 12 Glucose 214 H POC Glucose Calcium 8.7 Magnesium 2.00 Ferritin Total Bilirubin 0.30 Direct Bilirubin < 0.2 Indirect Bilirubin 0.1 AST 10 ALT 13 Alkaline Phosphatase 55 Ammonia Lactate Dehydrogenase Troponin T 0.329 H* C-Reactive Protein Total Protein 6.8 Albumin 3.0 L Albumin/Globulin Ratio 0.8 Triglycerides 227 H Cholesterol 103 LDL Cholesterol Direct 40 L HDL Cholesterol 25 L Cholesterol/HDL Ratio 4.12 Salicylates Acetaminophen Plasma/Serum Alcohol Blood Type Antibody Screen Crossmatch 08/09/21 08/09/21 08/09/21 13:36 13:36 13:36 WBC RBC Hgb Hct MCV MCH MCHC RDW Plt Count Lymph % (Auto) [place] % (Auto) Eos % (Auto) Baso % (Auto) Lymph # (Auto) [place] # (Auto) Eos # (Auto) Baso # (Auto) Seg Neutrophils % Seg Neutrophils # PT 13.5 INR 0.98 APTT 30.5 D-Dimer Sodium Potassium Chloride Carbon Dioxide Anion Gap BUN Creatinine Estimated GFR BUN/Creatinine Ratio Glucose POC Glucose Calcium Magnesium Ferritin Total Bilirubin Direct Bilirubin Indirect Bilirubin AST ALT Alkaline Phosphatase Ammonia 13.0 L Lactate Dehydrogenase Troponin T C-Reactive Protein Total Protein Albumin Albumin/Globulin Ratio Triglycerides Cholesterol LDL Cholesterol Direct HDL Cholesterol Cholesterol/HDL Ratio Salicylates < 0.3 L Acetaminophen Plasma/Serum Alcohol Blood Type Antibody Screen Crossmatch 08/09/21 08/09/21 08/09/21 13:36 13:36 14:35 WBC RBC Hgb Hct MCV MCH MCHC RDW Plt Count Lymph % (Auto) [place] % (Auto) Eos % (Auto) Baso % (Auto) Lymph # (Auto) [place] # (Auto) Eos # (Auto) Baso # (Auto) Seg Neutrophils % Seg Neutrophils # PT INR APTT D-Dimer Sodium Potassium Chloride Carbon Dioxide Anion Gap BUN Creatinine Estimated GFR BUN/Creatinine Ratio Glucose POC Glucose 201 H Calcium Magnesium Ferritin Total Bilirubin Direct Bilirubin Indirect Bilirubin AST ALT Alkaline Phosphatase Ammonia Lactate Dehydrogenase Troponin T C-Reactive Protein Total Protein Albumin Albumin/Globulin Ratio Triglycerides Cholesterol LDL Cholesterol Direct HDL Cholesterol Cholesterol/HDL Ratio Salicylates Acetaminophen 5.0 L Plasma/Serum Alcohol < 0.01 Blood Type Antibody Screen Crossmatch 08/09/21 08/09/21 08/09/21 15:42 15:42 15:42 WBC RBC Hgb Hct MCV MCH MCHC RDW Plt Count Lymph % (Auto) [place] % (Auto) Eos % (Auto) Baso % (Auto) Lymph # (Auto) [place] # (Auto) Eos # (Auto) Baso # (Auto) Seg Neutrophils % Seg Neutrophils # PT INR APTT D-Dimer 582.79 H Sodium Potassium Chloride Carbon Dioxide Anion Gap BUN Creatinine Estimated GFR BUN/Creatinine Ratio Glucose 223 H POC Glucose Calcium Magnesium Ferritin 3300.0 H Total Bilirubin Direct Bilirubin Indirect Bilirubin AST ALT Alkaline Phosphatase Ammonia Lactate Dehydrogenase 252 H Troponin T C-Reactive Protein 1.10 Total Protein Albumin Albumin/Globulin Ratio Triglycerides Cholesterol LDL Cholesterol Direct HDL Cholesterol Cholesterol/HDL Ratio Salicylates Acetaminophen Plasma/Serum Alcohol Blood Type Antibody Screen Crossmatch 08/09/21 08/09/21 08/09/21 15:42 18:16 20:25 WBC RBC Hgb 5.8 L* Hct 17.4 L* MCV MCH MCHC RDW Plt Count Lymph % (Auto) [place] % (Auto) Eos % (Auto) Baso % (Auto) Lymph # (Auto) [place] # (Auto) Eos # (Auto) Baso # (Auto) Seg Neutrophils % Seg Neutrophils # PT INR APTT D-Dimer Sodium Potassium Chloride Carbon Dioxide Anion Gap BUN Creatinine Estimated GFR BUN/Creatinine Ratio Glucose POC Glucose Calcium Magnesium Ferritin Total Bilirubin Direct Bilirubin Indirect Bilirubin AST ALT Alkaline Phosphatase Ammonia Lactate Dehydrogenase Troponin T 0.349 H* C-Reactive Protein Total Protein Albumin Albumin/Globulin Ratio Triglycerides Cholesterol LDL Cholesterol Direct HDL Cholesterol Cholesterol/HDL Ratio Salicylates Acetaminophen Plasma/Serum Alcohol Blood Type AB NEGATIVE Antibody Screen Negative Crossmatch See Detail 08/10/21 08/10/21 04:44 04:44 WBC 12.2 H RBC 1.66 L Hgb 5.6 L* Hct 16.7 L* MCV 101 H MCH 34 H MCHC 34 RDW 14.1 Plt Count 175 Lymph % (Auto) 10.3 L [place] % (Auto) 11.7 H Eos % (Auto) 0.1 Baso % (Auto) 0.6 Lymph # (Auto) 1.3 [place] # (Auto) 1.4 H Eos # (Auto) 0.0 Baso # (Auto) 0.1 Seg Neutrophils % 77.3 H Seg Neutrophils # 9.5 H PT INR APTT D-Dimer Sodium 138 Potassium 5.0 Chloride 100.0 Carbon Dioxide 26 Anion Gap 17 BUN 87 H Creatinine 6.6 H Estimated GFR 11 BUN/Creatinine Ratio 13 Glucose 251 H POC Glucose Calcium 8.3 L Magnesium Ferritin Total Bilirubin 0.30 Direct Bilirubin Indirect Bilirubin AST 9 ALT 10 Alkaline Phosphatase 45 Ammonia Lactate Dehydrogenase Troponin T C-Reactive Protein Total Protein 5.7 L Albumin 2.7 L Albumin/Globulin Ratio 0.9 Triglycerides Cholesterol LDL Cholesterol Direct HDL Cholesterol Cholesterol/HDL Ratio Salicylates Acetaminophen Plasma/Serum Alcohol Blood Type Antibody Screen Crossmatch Assessment and Plan Patient with gradual decline in hemoglobin but no overt bleeding. He is Hemoccult positive. Therefore, patient with occult gastrointestinal bleed of unclear source or etiology. Patient to have recent colonoscopy, however interestingly there was a sigmoid lesion that was unclear what the etiology was and the biopsies did show inflammation., Therefore lower GI source not definitively ruled out and I will recommend EGD and colonoscopy for further evaluation. However, patient requires transfusion for goal hemoglobin of 7 is well is optimization of his fluid status as he is a dialysis patient therefore procedures cannot happen today. Therefore we will tentatively plan on EGD and colonoscopy on Friday In the meantime continue PPI in case upper GI source and trend hemoglobin closely and monitor for overt bleeding. Dr. Patel will be taking over the service on Friday - Patient Problems (1) Occult blood in stools Current Visit: Yes Status: Acute (2) Symptomatic anemia Current Visit: Yes Status: Acute (3) Syncope Current Visit: Yes Status: Acute (4) End stage renal disease on dialysis Current Visit: Yes Status: Chronic (5) GI bleed Current Visit: Yes Status: Chronic Qualifiers: GI bleed type/associated pathology: gastrointestinal hemorrhage with hematemesis Qualified Code(s): K92.0 - Hematemesis
[2021-08-10] MEDS ORDERED: SODIUM CHLORIDE 0.9% 100 ML IV PRN (10:05)
[2021-08-10] MEDS ORDERED: EPOETIN ALFA-EPBX 20,000 UNIT/1 ML VIAL IV PRN (10:06)
--- NOTE | 2021-08-10 11:05 | Vascular Lab Report ---
DUPLEX DOPPLER ULTRASOUND CAROTID, BILATERAL INDICATION / CLINICAL INFORMATION: Syncope. COMPARISON: None available. FINDINGS: RIGHT CAROTID: Mild calcified atherosclerotic plaque. - PLAQUE ESTIMATE (%): < 50% - CCA velocity: 121 cm/sec. - ICA peak systolic velocity: 122 cm/sec. - ICA/CCA PSV Ratio: Less than 2. Right Vertebral Artery: Antegrade flow. LEFT CAROTID: Mild calcified atherosclerotic plaque. - PLAQUE ESTIMATE (%): < 50% - CCA velocity: 122 cm/sec. - ICA peak systolic velocity: 122 cm/sec. - ICA/CCA PSV Ratio: Less than 2. Left Vertebral Artery: Antegrade flow. IMPRESSION: 1. Right Internal Carotid Artery: Less than 50% diameter stenosis. 2. Left Internal Carotid Artery: Less than 50% diameter stenosis. Velocity criteria are extrapolated from diameter data as defined by the Society of Radiologists in Ul trasound Consensus Conference, Radiology 2003; 229;340-346. NO STENOSIS (NORMAL) - Plaque = none; ICA PSV < 125 cm/sec; ICA/CCA PSV Ratio < 2.0 <50% STENOSIS - Plaque < 50%; ICA PSV < 125 cm/sec; ICA/CCA PSV Ratio < 2.0 50-69% STENOSIS - Plaque > 50%; ICA PSV = 125-230 cm/sec; ICA/CCA PSV Ratio = 2.0-4.0 >70% BUT <100% STENOSIS - Plaque > 50%; ICA PSV > 230 cm/sec; ICA/CCA PSV Ratio > 4.0 NEAR OCCLUSION - Plaque = visible lumen; ICA PSV = high/low/none; ICA/CCA PSV Ratio = variable TOTAL OCCLUSION - Plaque = no lumen; ICA PSV = none; ICA/CCA PSV Ratio = N/A Scribed by: Hannah Noel RDMS, RVT Scribed: 08/10/2021 9:25 AM I have reviewed the images, agree with this report, and edited this report as needed. Signer Name: Howard Pratt MD Signed: 08/10/2021 11:01 AM Workstation Name: [id number]
--- NOTE | 2021-08-10 14:47 | Cat Scan Report ---
CTA CHEST WITH CONTRAST INDICATION / CLINICAL INFORMATION: Low O2 sat, pulmonary opacities on recent chest radiograph, pleura l effusion. TECHNIQUE: Axial CT images were obtained through the chest after injection of 100 cc of Omnipaque 350 IV contrast. 3 plane MIP and/or 3D reconstructions were produced. All CT scans at this location are performed using CT dose reduction for ALARA by means of automated exposure control. COMPARISON: Chest radiograph dated 08/09/2020 FINDINGS: PULMONARY ARTERIES: No pulmonary emboli. THORACIC AORTA: Mild atherosclerotic calcification without acute abnormality. HEART: There are mild calcifications noted around the mitral valve. There is minimal calcification at the aortic valve. CORONARY ARTERY CALCIFICATION: Moderate. MEDIASTINUM / MARYANN: No significant abnormality. PLEURA: There is a small left pleural effusion. No pneumothorax. LUNGS: There are peripheral predominantly peripheral parenchymal opacities with some areas of consoli dation and some groundglass density. Consolidation is most prominent in the right lung base and in th e left lower lobe. ADDITIONAL FINDINGS: None. UPPER ABDOMEN: No acute abnormality SKELETAL STRUCTURES: No acute abnormality IMPRESSION: 1. No CT evidence for pulmonary embolism. 2. Bilateral pulmonary opacities as described above. The appearance is most concerning for pneumonia including atypical or viral pneumonia. Signer Name: Howard Pratt MD Signed: 08/10/2021 2:42 PM Workstation Name: [id number]
--- NOTE | 2021-08-10 16:43 | Progress Note ---
Assessment and Plan This is a 55 year old man who presents with loss of consciousness at end of HD today # ESRD: next HD tomorrow per //, can hold HD today based on labs/volume, currently without acute need for HD. Had full session yesterday. No HD post contrast necessary unless there are specific indications from labs/volume assessment - daily labs - renally dose meds - avoid nephrotoxins - renal diet - verbal consent obtained for HD # Anemia: last hemoglobin 6.1->5.6, agree with PRBCs, will continue ESAs with HD prn, monitor volume status closely # HTN: UF as tolerated. BP stable # Secondary Hyperparathyroidism: continue home binders as needed # COVID-19: management per primary Subjective Date of service: 08/10/21 Interval history: No major changes noted. Receiving blood transfusion. Objective - Exam Narrative Exam: Constitutional: no acute distress Head: NC/AT Neck: supple Lungs: mildly labored breathing CV: RRR, no M/R/G Abdomen: soft, non-tender, bowel sounds present Back: nontender Extremities: no edema, pulses WNL Skin: intact Neuro: no focal deficits, alert and oriented x4 - Vital Signs Vital signs: Vital Signs - 12hr 08/10/21 08/10/21 08/10/21 05:01 06:00 07:01 Temperature Pulse Rate Respiratory Rate Blood Pressure 160/42 160/42 O2 Sat by Pulse 100 100 90 Oximetry 08/10/21 08/10/21 08/10/21 08:01 09:01 10:01 Temperature Pulse Rate Respiratory Rate Blood Pressure 160/42 153/20 153/20 O2 Sat by Pulse 79 L 100 100 Oximetry 08/10/21 08/10/21 08/10/21 10:51 11:00 11:10 Temperature Pulse Rate Respiratory Rate Blood Pressure 176/28 176/28 176/28 O2 Sat by Pulse 100 100 100 Oximetry 08/10/21 11:32 Temperature 97.9 F Pulse Rate 87 Respiratory 22 Rate Blood Pressure 143/77 O2 Sat by Pulse 100 Oximetry - Lab 08/10/21 04:44 08/10/21 04:44 Most recent lab results Calcium 8.3 mg/dL (8.4-10.2) L 08/10/21 04:44 Magnesium 2.00 mg/dL (1.7-2.3) 08/09/21 13:36 Medications & Allergies - Medications Allergies/Adverse Reactions: Allergies No Known Allergies Allergy (Unverified 08/09/21 13:17) Active Medications: Generic Name Dose Route Start Last Admin Trade Name Freq PRN Reason Stop Dose Admin Acetaminophen 650 mg 08/09/21 20:44 Acetaminophen 325 Mg Tab PO Q4H PRN Pain MILD(1-3)/Fever >100.5/LIN Hydromorphone HCl 0.5 mg 08/09/21 20:53 Hydromorphone 1 Mg/1 Ml Inj IV Q3H PRN Pain , Severe (7-10) Sodium Chloride 100 mls @ 999 mls/hr 08/10/21 10:05 Nacl 0.9% IV ARMANI PRN Hypotension Ondansetron HCl 4 mg 08/09/21 20:44 Ondansetron 4 Mg/2 Ml Inj IV Q8H PRN Nausea And Vomiting Oxycodone/Acetaminophen 1 tab 08/09/21 20:53 Oxycodone /Acetaminophen 5-325mg Tab PO Q6H PRN Pain, Moderate (4-6) Pantoprazole Sodium 40 mg 08/10/21 10:00 Pantoprazole 40 Mg Tab PO BID SARAH Sodium Chloride 10 ml 08/09/21 22:00 08/10/21 01:15 Sodium Chloride 0.9% 10 Ml Flush Syringe IV 10 ml BID SARAH Administration Sodium Chloride 10 ml 08/09/21 20:44 Sodium Chloride 0.9% 10 Ml Flush Syringe IV PRN PRN LINE FLUSH
--- NOTE | 2021-08-10 19:13 | Progress Note ---
Assessment and Plan - Patient Problems (1) Symptomatic anemia Current Visit: Yes Status: Acute Plan to address problem: Patient required 2 units of blood transfusion with packed red blood cells (2) Syncope Current Visit: Yes Status: Acute Plan to address problem: Secondary to anemia Syncope work-up including echocardiogram (3) Suspected COVID-19 virus infection Current Visit: Yes Status: Acute Plan to address problem: Patient had Covid pneumonia a week ago Coronavirus PCR negative (4) GI bleed Current Visit: Yes Status: Chronic Qualifiers: GI bleed type/associated pathology: gastrointestinal hemorrhage with hematemesis Qualified Code(s): K92.0 - Hematemesis Plan to address problem: Patient has a adenomatous polyp in the ascending colon near the ileocecal valve Colonoscopy done by Dr. 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 Post syncopal episode patient is confused. Patient also apparently had a low oxygen level. Patient has no memory of experiencing the syncopal episode or being brought to the hospital. Patient was in [facility] recently and was discharged. Patient was apparently diagnosed with COVID-19 1 week ago at [facility]. No chest pain. No fever. No chills. Generalized weakness present. No exacerbating or relieving factors. 08/10/2021 No active GI bleed For upper and lower endoscopy on Friday Patient receiving blood transfusions Hemoglobin and hematocrit still low Objective - Constitutional Vitals: Vital Signs - 12hr 08/10/21 08/10/21 08/10/21 08:01 09:01 10:01 Temperature Pulse Rate Respiratory Rate Blood Pressure 160/42 153/20 153/20 O2 Sat by Pulse 79 L 100 100 Oximetry 08/10/21 08/10/21 08/10/21 10:51 11:00 11:10 Temperature Pulse Rate Respiratory Rate Blood Pressure 176/28 176/28 176/28 O2 Sat by Pulse 100 100 100 Oximetry 08/10/21 11:32 Temperature 97.9 F Pulse Rate 87 Respiratory 22 Rate Blood Pressure 143/77 O2 Sat by Pulse 100 Oximetry General appearance: Present: no acute distress, well-nourished - EENT Eyes: PERRL, EOM intact ENT: hearing intact, clear oral mucosa, other (Pale mucous membranes) Ears: bilateral: normal - Neck Neck: supple, normal ROM - Respiratory Respiratory effort: normal Respiratory: bilateral: CTA - Breasts Breasts: normal - Cardiovascular Heart rate: 78 Rhythm: regular Heart Sounds: Present: S1 & S2. Absent: gallop, rub Extremities: pulses intact, No edema, normal color, Full ROM - Gastrointestinal General gastrointestinal: Present: soft, non-tender, non-distended, normal bowel sounds - Genitourinary Male genitourinary: normal - Integumentary Integumentary: clear, warm, dry - Musculoskeletal Musculoskeletal: 1, strength equal bilaterally - Neurologic Neurologic: moves all extremities - Psychiatric Psychiatric: memory intact, appropriate mood/affect, intact judgment & insight - Labs CBC & Chem 7: 08/12/21 04:31 08/12/21 04:31 Labs: Abnormal lab results 08/09/21 08/09/21 08/10/21 Range/Units 15:42 20:25 04:44 WBC 12.2 H (4.5-11.0) K/mm3 RBC 1.66 L (3.65-5.03) M/mm3 Hgb 5.8 L* 5.6 L* (11.8-15.2) gm/dl Hct 17.4 L* 16.7 L* (35.5-45.6) % MCV 101 H (84-94) fl MCH 34 H (28-32) pg Lymph % (Auto) 10.3 L (13.4-35.0) % [place] % (Auto) 11.7 H (0.0-7.3) % [place] # (Auto) 1.4 H (0.0-0.8) K/mm3 Seg Neutrophils % 77.3 H (40.0-70.0) % Seg Neutrophils # 9.5 H (1.8-7.7) K/mm3 BUN (9-20) mg/dL Creatinine (0.8-1.3) mg/dL Glucose (75-100) mg/dL POC Glucose (70-105) mg/dL Calcium (8.4-10.2) mg/dL Total Protein (6.3-8.2) g/dL Albumin (3.9-5) g/dL Crossmatch See Detail 08/10/21 08/10/21 08/10/21 Range/Units 04:44 11:30 18:10 WBC (4.5-11.0) K/mm3 RBC (3.65-5.03) M/mm3 Hgb (11.8-15.2) gm/dl Hct (35.5-45.6) % MCV (84-94) fl MCH (28-32) pg Lymph % (Auto) (13.4-35.0) % [place] % (Auto) (0.0-7.3) % [place] # (Auto) (0.0-0.8) K/mm3 Seg Neutrophils % (40.0-70.0) % Seg Neutrophils # (1.8-7.7) K/mm3 BUN 87 H (9-20) mg/dL Creatinine 6.6 H (0.8-1.3) mg/dL Glucose 251 H (75-100) mg/dL POC Glucose 179 H 181 H (70-105) mg/dL Calcium 8.3 L (8.4-10.2) mg/dL Total Protein 5.7 L (6.3-8.2) g/dL Albumin 2.7 L (3.9-5) g/dL Crossmatch HEART Score - HEART Score Age: 45-65 Risk factors: > 3 risk factors or hx of atherosclerotic disease Troponin: Troponin T 0.349 ng/mL (0.00-0.029) H* 08/09/21 18:16 Troponin: 1-3x normal limit - Critical Actions Critical Actions: 0-3 pts:0.9-1.7%risk of adverse cardiac event.Candidate for discharge
[2021-08-10] MEDS: PANTOPRAZOLE 40 MG TAB PO SCH ×2 (23:37→23:41)
[2021-08-11] MEDS ORDERED: SODIUM CHLORIDE 0.9% 500 ML 500 ML IV SCH (04:00)
[2021-08-11 06:24] LABS: Hepatitis C Virus Antibody Non-Reactive (NonReactive)
[2021-08-11 07:00] LABS: Hepatitis B Surface Antigen Nonreactive (Negative)
[2021-08-11] MEDS: PANTOPRAZOLE 40 MG TAB PO SCH ×2 (09:25→21:57)
--- NOTE | 2021-08-11 10:06 | Progress Note ---
Assessment and Plan This is a 55 year old man who presents with loss of consciousness at end of HD # ESRD: next HD today per //, PRBCs with HD - daily labs - renally dose meds - avoid nephrotoxins - renal diet - verbal consent obtained for HD # Anemia: last hemoglobin 6.1->5.6, agree with PRBCs, will continue ESAs with HD prn, monitor volume status closely # HTN: UF as tolerated. BP stable # Secondary Hyperparathyroidism: continue home binders as needed # COVID-19: management per primary Subjective Date of service: 08/11/21 Interval history: No major changes noted. resting this AM Objective - Exam Narrative Exam: Constitutional: no acute distress Head: NC/AT Neck: supple Lungs: mildly labored breathing CV: RRR, no M/R/G Abdomen: soft, non-tender, bowel sounds present Back: nontender Extremities: no edema, pulses WNL Skin: intact Neuro: no focal deficits, alert and oriented x4 - Vital Signs Vital signs: Vital Signs - 12hr 08/11/21 08/11/21 08/11/21 02:15 04:01 04:35 Temperature 97.6 F 97.9 F Pulse Rate 92 H 84 Respiratory 18 20 Rate Blood Pressure 169/89 158/85 O2 Sat by Pulse 98 99 100 Oximetry 08/11/21 08/11/21 08/11/21 04:37 04:50 05:03 Temperature 97.9 F 98.1 F Pulse Rate 83 82 85 Respiratory 20 20 Rate Blood Pressure 158/85 136/76 136/76 O2 Sat by Pulse 99 100 100 Oximetry 08/11/21 08/11/21 08/11/21 05:20 05:50 06:20 Temperature 98.1 F 98.1 F 98.1 F Pulse Rate 81 82 84 Respiratory 20 20 20 Rate Blood Pressure 163/86 152/74 142/73 O2 Sat by Pulse 100 100 97 Oximetry 08/11/21 08/11/21 06:50 07:20 Temperature 98.2 F 98.2 F Pulse Rate 88 82 Respiratory 20 20 Rate Blood Pressure 161/83 132/65 O2 Sat by Pulse 99 96 Oximetry - Lab 08/10/21 04:44 08/10/21 04:44 Most recent lab results Calcium 8.3 mg/dL (8.4-10.2) L 08/10/21 04:44 Magnesium 2.00 mg/dL (1.7-2.3) 08/09/21 13:36 Medications & Allergies - Medications Allergies/Adverse Reactions: Allergies No Known Allergies Allergy (Unverified 08/09/21 13:17) Active Medications: Generic Name Dose Route Start Last Admin Trade Name Freq PRN Reason Stop Dose Admin Acetaminophen 650 mg 08/09/21 20:44 Acetaminophen 325 Mg Tab PO Q4H PRN Pain MILD(1-3)/Fever >100.5/LIN Hydromorphone HCl 0.5 mg 08/09/21 20:53 Hydromorphone 1 Mg/1 Ml Inj IV Q3H PRN Pain , Severe (7-10) Sodium Chloride 100 mls @ 999 mls/hr 08/10/21 10:05 Nacl 0.9% IV ARMANI PRN Hypotension Sodium Chloride 500 mls @ 50 mls/hr 08/11/21 04:00 08/11/21 04:06 Nacl 0.9% 500 Ml IV 08/11/21 13:59 50 mls/hr DIRECT SARAH Administration Ondansetron HCl 4 mg 08/09/21 20:44 Ondansetron 4 Mg/2 Ml Inj IV Q8H PRN Nausea And Vomiting Oxycodone/Acetaminophen 1 tab 08/09/21 20:53 Oxycodone /Acetaminophen 5-325mg Tab PO Q6H PRN Pain, Moderate (4-6) Pantoprazole Sodium 40 mg 08/10/21 10:00 08/11/21 09:25 Pantoprazole 40 Mg Tab PO 40 mg BID SARAH Administration Sodium Chloride 10 ml 08/09/21 22:00 08/11/21 09:26 Sodium Chloride 0.9% 10 Ml Flush Syringe IV 10 ml BID SARAH Administration Sodium Chloride 10 ml 08/09/21 20:44 Sodium Chloride 0.9% 10 Ml Flush Syringe IV PRN PRN LINE FLUSH
[2021-08-11 13:32] LABS: Basophils # (Auto) 0.1 K/mm3 (0.0-0.1); Basophils % (Auto) 1.1 % (0.0-1.8); Eosinophils % (Auto) 0.5 % (0.0-4.3); Hemoglobin 6.4 gm/dl (11.8-15.2); Lymphocytes % (Auto) 11.5 % (13.4-35.0); Mean Corpuscular HGB Conc 34 % (32-34); Mean Corpuscular Volume 98 fl (84-94); Monocytes # (Auto) 1.1 K/mm3 (0.0-0.8); Monocytes % (Auto) 12.5 % (0.0-7.3); Platelet Count 187 K/mm3 (140-440); Red Blood Count 1.92 M/mm3 (3.65-5.03); Red Cell Distribution Width 16.7 % (13.2-15.2)
[2021-08-11] MEDS ORDERED: SODIUM CHLORIDE 0.9% 500 ML 500 ML IV ONE (13:52)
[2021-08-11 13:57] LABS: Hematocrit 18.8 % (35.5-45.6)
[2021-08-11] MEDS ORDERED: SODIUM CHLORIDE 0.9% 250ML 250 ML ONE (15:15)
--- NOTE | 2021-08-11 17:48 | Gastroenterology Progress Note ---
Assessment and Plan 1.GI: anemia w/ recent colon w/ polyp - follow h/h, transfuse as needed to Hgb >7 - probable egd/colon on Friday - will follow Subjective Date of service: 08/11/21 Interval history: - no GI complaints including signs of bleeding overnight Objective - Constitutional Vitals: Temp Pulse Resp BP Pulse Ox 98.1 F 95 H 18 171/91 96 08/11/21 11:29 08/11/21 11:29 08/11/21 11:29 08/11/21 11:29 08/11/21 14:00 General appearance: no acute distress - EENT Eyes: PERRL - Respiratory Respiratory: bilateral: CTA - Cardiovascular Rhythm: regular Heart Sounds: Present: S1 & S2 - Gastrointestinal General gastrointestinal: Present: soft, non-tender - Labs CBC & Chem 7: 08/11/21 13:04 08/10/21 04:44 Labs: Laboratory Results - last 24 hr 08/09/21 08/09/21 08/10/21 15:42 15:42 18:10 WBC RBC Hgb Hct MCV MCH MCHC RDW Plt Count Lymph % (Auto) [place] % (Auto) Eos % (Auto) Baso % (Auto) Lymph # (Auto) [place] # (Auto) Eos # (Auto) Baso # (Auto) Seg Neutrophils % Seg Neutrophils # POC Glucose 181 H Procalcitonin 1.11 Hepatitis A IgM Ab Hep Bs Antigen Hep B Core IgM Ab Hepatitis C Antibody Blood Type AB NEGATIVE Antibody Screen Negative Crossmatch See Detail 08/11/21 08/11/21 04:06 13:04 WBC 9.0 RBC 1.92 L Hgb 6.4 L Hct 18.8 L* MCV 98 H MCH 34 H MCHC 34 RDW 16.7 H Plt Count 187 Lymph % (Auto) 11.5 L [place] % (Auto) 12.5 H Eos % (Auto) 0.5 Baso % (Auto) 1.1 Lymph # (Auto) 1.0 L [place] # (Auto) 1.1 H Eos # (Auto) 0.0 Baso # (Auto) 0.1 Seg Neutrophils % 74.4 H Seg Neutrophils # 6.7 POC Glucose Procalcitonin Hepatitis A IgM Ab Non-reactive Hep Bs Antigen Nonreactive Hep B Core IgM Ab Non-reactive Hepatitis C Antibody Non-reactive Blood Type Antibody Screen Crossmatch
--- NOTE | 2021-08-11 19:06 | Progress Note ---
Assessment and Plan - Patient Problems (1) Symptomatic anemia Current Visit: Yes Status: Acute Plan to address problem: Patient to get 2 units of blood transfusion (2) Syncope Current Visit: Yes Status: Acute Plan to address problem: Secondary to anemia Syncope work-up including echocardiogram (3) Suspected COVID-19 virus infection Current Visit: Yes Status: Acute Plan to address problem: Coronavirus PCR negative (4) GI bleed Current Visit: Yes Status: Chronic Qualifiers: GI bleed type/associated pathology: gastrointestinal hemorrhage with hematemesis Qualified Code(s): K92.0 - Hematemesis Plan to address problem: Covid rule outPatient did get EGD and colonoscopy on Friday which is 08/13/2021 (5) End stage renal disease on dialysis Current Visit: Yes Status: Chronic Plan to address problem: Nephrology consulted for hemodialysis (6) Hypertension Current Visit: Yes Status: Chronic Qualifiers: Hypertension type: primary hypertension Qualified Code(s): I10 - Essential (primary) hypertension Plan to address problem: Antihypertensives and adjust medications as necessary (7) T2DM (type 2 diabetes mellitus) Current Visit: Yes Status: Chronic Qualifiers: Diabetes mellitus detention insulin use: unspecified supervisor intermediates insulin use status Plan to address problem: Coverage for now and check hemoglobin A1c (8) DVT prophylaxis Current Visit: Yes Status: Acute Plan to address problem: On SCDs and GI prophylaxis Subjective Date of service: 08/11/21 Principal diagnosis: GI bleed, end-stage renal disease on hemodialysis Interval history: 55-year-old male with history of diabetes and end-stage renal disease had a syncopal episode during dialysis. Post syncopal episode patient is confused. Patient also apparently had a low oxygen level. Patient has no memory of experiencing the syncopal episode or being brought to the hospital. Patient was in [facility] recently and was discharged. Patient was apparently diagnosed with COVID-19 1 week ago at [facility]. No chest pain. No fever. No chills. Generalized weakness present. No exacerbating or relieving factors. 08/11/2021 No active GI bleed For upper and lower endoscopy on Friday Patient receiving blood transfusions Hemoglobin and hematocrit still low Objective - Constitutional Vitals: Vital Signs - 12hr 08/11/21 08/11/21 08/11/21 07:20 11:29 14:00 Temperature 98.2 F 98.1 F Pulse Rate 82 95 H Respiratory 20 18 Rate Blood Pressure 132/65 171/91 O2 Sat by Pulse 96 92 96 Oximetry O2 Sat by Pulse Oximetry [ Bilateral Throughout] 08/11/21 08/11/21 08/11/21 14:45 15:00 15:15 Temperature 99.1 F Pulse Rate 80 81 84 Respiratory 18 Rate Blood Pressure 162/84 143/71 118/62 O2 Sat by Pulse Oximetry O2 Sat by Pulse 97 Oximetry [ Bilateral Throughout] 08/11/21 08/11/21 08/11/21 15:30 15:45 16:00 Temperature Pulse Rate 84 81 81 Respiratory Rate Blood Pressure 132/61 133/69 145/66 O2 Sat by Pulse Oximetry O2 Sat by Pulse Oximetry [ Bilateral Throughout] 08/11/21 08/11/21 08/11/21 16:15 16:30 16:45 Temperature Pulse Rate 82 85 85 Respiratory Rate Blood Pressure 136/64 131/63 128/57 O2 Sat by Pulse Oximetry O2 Sat by Pulse Oximetry [ Bilateral Throughout] 08/11/21 08/11/21 17:00 17:40 Temperature 98.8 F Pulse Rate 83 83 Respiratory 18 Rate Blood Pressure 135/68 143/77 O2 Sat by Pulse Oximetry O2 Sat by Pulse 97 Oximetry [ Bilateral Throughout] General appearance: Present: no acute distress, well-nourished - EENT Eyes: PERRL, EOM intact ENT: hearing intact, clear oral mucosa Ears: bilateral: normal - Neck Neck: supple, normal ROM - Respiratory Respiratory effort: normal Respiratory: bilateral: CTA - Breasts Breasts: normal - Cardiovascular Heart rate: 78 Rhythm: regular Heart Sounds: Present: S1 & S2. Absent: gallop, rub Extremities: pulses intact, No edema, normal color, Full ROM - Gastrointestinal General gastrointestinal: Present: soft, non-tender, non-distended, normal bowel sounds - Genitourinary Male genitourinary: normal - Integumentary Integumentary: clear, warm, dry - Musculoskeletal Musculoskeletal: 1, strength equal bilaterally - Neurologic Neurologic: moves all extremities - Psychiatric Psychiatric: memory intact, appropriate mood/affect, intact judgment & insight - Labs CBC & Chem 7: 08/12/21 04:31 08/12/21 04:31 Labs: Abnormal lab results 08/09/21 08/11/21 Range/Units 15:42 13:04 RBC 1.92 L (3.65-5.03) M/mm3 Hgb 6.4 L (11.8-15.2) gm/dl Hct 18.8 L* (35.5-45.6) % MCV 98 H (84-94) fl MCH 34 H (28-32) pg RDW 16.7 H (13.2-15.2) % Lymph % (Auto) 11.5 L (13.4-35.0) % [place] % (Auto) 12.5 H (0.0-7.3) % Lymph # (Auto) 1.0 L (1.2-5.4) K/mm3 [place] # (Auto) 1.1 H (0.0-0.8) K/mm3 Seg Neutrophils % 74.4 H (40.0-70.0) % Crossmatch See Detail HEART Score - HEART Score Age: 45-65 Risk factors: > 3 risk factors or hx of atherosclerotic disease Troponin: Troponin T 0.349 ng/mL (0.00-0.029) H* 08/09/21 18:16 Troponin: 1-3x normal limit - Critical Actions Critical Actions: 0-3 pts:0.9-1.7%risk of adverse cardiac event.Candidate for discharge
[2021-08-12 05:07] LABS: Hematocrit 21.5 % (35.5-45.6); Hemoglobin 7.4 gm/dl (11.8-15.2); Mean Corpuscular HGB Conc 34 % (32-34); Mean Corpuscular Volume 97 fl (84-94); Platelet Count 163 K/mm3 (140-440); Red Blood Count 2.23 M/mm3 (3.65-5.03); Red Cell Distribution Width 17.1 % (13.2-15.2)
[2021-08-12 05:29] LABS: Calcium 8.5 mg/dL (8.4-10.2)
[2021-08-12 05:45] LABS: Band Neutrophils # (Manual) 0.2 K/mm3; Total Cells Counted 100
[2021-08-12 05:46] LABS: Anisocytosis 1+; Hypochromasia 2+; Macrocytosis Few
[2021-08-12 05:47] LABS: Platelet Estimate Consistent w Auto
[2021-08-12] MEDS: PANTOPRAZOLE 40 MG TAB PO SCH ×2 (09:46→21:07)
--- NOTE | 2021-08-12 09:59 | Progress Note ---
Assessment and Plan This is a 55 year old man who presents with loss of consciousness at end of HD # ESRD: continue //, PRBCs with HD prn; s/p HD yesterday, no issues noted - daily labs - renally dose meds - avoid nephrotoxins - renal diet - verbal consent obtained for HD # Anemia: last hemoglobin 6.1->5.6->7.4, agree with PRBCs prn, will continue ESAs with HD prn, monitor volume status closely # HTN: UF as tolerated. BP stable # Secondary Hyperparathyroidism: continue home binders as needed # COVID-19: management per primary Subjective Date of service: 08/12/21 Interval history: No major changes noted. resting this AM Objective - Exam Narrative Exam: Constitutional: no acute distress Head: NC/AT Neck: supple Lungs: mildly labored breathing CV: RRR, no M/R/G Abdomen: soft, non-tender, bowel sounds present Back: nontender Extremities: no edema, pulses WNL Skin: intact Neuro: no focal deficits, alert and oriented x4 - Vital Signs Vital signs: Vital Signs - 12hr 08/11/21 22:00 O2 Sat by Pulse 98 Oximetry - Lab 08/12/21 04:31 08/12/21 04:31 Most recent lab results Calcium 8.5 mg/dL (8.4-10.2) 08/12/21 04:31 Magnesium 2.00 mg/dL (1.7-2.3) 08/09/21 13:36 Medications & Allergies - Medications Allergies/Adverse Reactions: Allergies No Known Allergies Allergy (Unverified 08/09/21 13:17) Home Medications: Home Medications Medication Instructions Recorded Confirmed Last Taken Type No Known Home Medications [No 08/11/21 08/11/21 Unknown History Reported Home Medications] Active Medications: Generic Name Dose Route Start Last Admin Trade Name Freq PRN Reason Stop Dose Admin Acetaminophen 650 mg 08/09/21 20:44 Acetaminophen 325 Mg Tab PO Q4H PRN Pain MILD(1-3)/Fever >100.5/LIN Hydromorphone HCl 0.5 mg 08/09/21 20:53 Hydromorphone 1 Mg/1 Ml Inj IV Q3H PRN Pain , Severe (7-10) Sodium Chloride 100 mls @ 999 mls/hr 08/10/21 10:05 Nacl 0.9% IV ARMANI PRN Hypotension Ondansetron HCl 4 mg 08/09/21 20:44 Ondansetron 4 Mg/2 Ml Inj IV Q8H PRN Nausea And Vomiting Oxycodone/Acetaminophen 1 tab 08/09/21 20:53 Oxycodone /Acetaminophen 5-325mg Tab PO Q6H PRN Pain, Moderate (4-6) Pantoprazole Sodium 40 mg 08/10/21 10:00 08/12/21 09:46 Pantoprazole 40 Mg Tab PO 40 mg BID SARAH Administration Sodium Chloride 10 ml 08/09/21 22:00 08/12/21 09:49 Sodium Chloride 0.9% 10 Ml Flush Syringe IV Not Given BID SARAH Sodium Chloride 10 ml 08/09/21 20:44 Sodium Chloride 0.9% 10 Ml Flush Syringe IV PRN PRN LINE FLUSH
--- NOTE | 2021-08-12 15:38 | Gastroenterology Progress Note ---
Assessment and Plan GI: stable overnight w/o GI complaints - continue current meds and diet - egd/colonoscopy in am Subjective Date of service: 08/12/21 Interval history: - no GI complaints overnight Objective - Constitutional Vitals: Temp Pulse Resp BP Pulse Ox 98.6 F 86 18 123/71 99 08/12/21 11:34 08/12/21 11:34 08/12/21 11:34 08/12/21 11:34 08/12/21 11:34 General appearance: no acute distress - EENT Eyes: PERRL ENT: hearing intact - Respiratory Respiratory: bilateral: CTA - Cardiovascular Rhythm: regular Heart Sounds: Present: S1 & S2 - Gastrointestinal General gastrointestinal: Present: soft, non-tender, non-distended - Labs CBC & Chem 7: 08/12/21 04:31 08/12/21 04:31 Labs: Laboratory Results - last 24 hr 08/09/21 08/12/21 08/12/21 15:42 04:31 04:31 WBC 8.6 RBC 2.23 L Hgb 7.4 L Hct 21.5 L MCV 97 H MCH 33 H MCHC 34 RDW 17.1 H Plt Count 163 Wayne % (Auto) Probate Judge Add Manual Diff Complete Total Counted 100 Seg Neuts % (Manual) 87.0 H Band Neutrophils % 2.0 Lymphocytes % (Manual) 5.0 L Monocytes % (Manual) 6.0 Nucleated RBC % Not Reportable Seg Neutrophils # Man 7.5 Band Neutrophils # 0.2 Lymphocytes # (Manual) 0.4 L Abs React Lymphs (Man) 0.0 Monocytes # (Manual) 0.5 Eosinophils # (Manual) 0.0 Basophils # (Manual) 0.0 Metamyelocytes # 0.0 Myelocytes # 0.0 Promyelocytes # 0.0 Blast Cells # 0.0 WBC Morphology Not Reportable Hypersegmented Neuts Not Reportable Hyposegmented Neuts Not Reportable Hypogranular Neuts Not Reportable Smudge Cells Not Reportable Toxic Granulation Not Reportable Toxic Vacuolation Not Reportable Dohle Bodies Not Reportable Pelger-Huet Anomaly Not Reportable Genoveva Rods Not Reportable Platelet Estimate Consistent w auto Clumped Platelets Not Reportable Plt Clumps, EDTA Not Reportable Large Platelets Not Reportable Giant Platelets Not Reportable Platelet Satelliting Not Reportable Plt Morphology Comment Not Reportable RBC Morphology Not Reportable Dimorphic RBCs Not Reportable Polychromasia Not Reportable Hypochromasia 2+ Poikilocytosis Not Reportable Anisocytosis 1+ Microcytosis Not Reportable Macrocytosis Few Spherocytes Not Reportable Pappenheimer Bodies Not Reportable Sickle Cells Not Reportable Target Cells Not Reportable Tear Drop Cells Not Reportable Ovalocytes Not Reportable Helmet Cells Not Reportable Espinoza-Pine Level Bodies Not Reportable Hymera Rings Not Reportable Emile Cells Not Reportable Bite Cells Not Reportable Crenated Cell Not Reportable Elliptocytes Not Reportable Acanthocytes (Spur) Not Reportable Rouleaux Not Reportable Hemoglobin C Crystals Not Reportable Schistocytes Not Reportable Malaria parasites Not Reportable Edvin Bodies Not Reportable Hem Pathologist Commnt No Sodium 138 Potassium 4.3 Chloride 99.3 Carbon Dioxide 24 Anion Gap 19 BUN 55 H Creatinine 6.5 H Estimated GFR 11 BUN/Creatinine Ratio 8 Glucose 178 H Calcium 8.5 Total Bilirubin 0.40 AST 12 ALT 13 Alkaline Phosphatase 55 Total Protein 6.2 L Albumin 3.0 L Albumin/Globulin Ratio 0.9 Blood Type AB NEGATIVE Antibody Screen Negative Crossmatch See Detail
[2021-08-12] MEDS ORDERED: POLYETHYLENE GLYCOL/ELECT SOLN 4000 ML PO ONE (18:00)
--- NOTE | 2021-08-12 18:04 | Progress Note ---
Assessment and Plan - Patient Problems (1) GI bleed Current Visit: Yes Status: Chronic Qualifiers: GI bleed type/associated pathology: gastrointestinal hemorrhage with hematemesis Qualified Code(s): K92.0 - Hematemesis Plan to address problem: Patient has a adenomatous polyp in the ascending colon near the ileocecal valve Colonoscopy done by Dr. Mims in January 2021 Active bleeding is stopped Patient to get upper and lower endoscopy tomorrow Possible discharge after the procedures tomorrow (2) Symptomatic anemia Current Visit: Yes Status: Acute Plan to address problem: Patient received 2 units of packed red blood cells hemoglobin improved to 7.5/21.5 (3) Syncope Current Visit: Yes Status: Acute Plan to address problem: Secondary to anemia Syncope work-up including echocardiogram (4) Suspected COVID-19 virus infection Current Visit: Yes Status: Acute Plan to address problem: Covid was ruled out (5) End stage renal disease on dialysis Current Visit: Yes Status: Chronic Plan to address problem: Nephrology consulted for hemodialysis (6) Hypertension Current Visit: Yes Status: Chronic Qualifiers: Hypertension type: primary hypertension Qualified Code(s): I10 - Essential (primary) hypertension Plan to address problem: Antihypertensives and adjust medications as necessary (7) T2DM (type 2 diabetes mellitus) Current Visit: Yes Status: Chronic Qualifiers: Diabetes mellitus fdc insulin use: unspecified fdc insulin use status Plan to address problem: Coverage for now and check hemoglobin A1c (8) DVT prophylaxis Current Visit: Yes Status: Acute Plan to address problem: On SCDs and GI prophylaxis (9) Discharge planning issues Current Visit: Yes Status: Acute Plan to address problem: Patient may be discharged tomorrow after the upper and lower endoscopy Patient to continue hemodialysis as outpatient Patient to be discharged on PPIs Subjective Date of service: 08/12/21 Principal diagnosis: GI bleed, end-stage renal disease on hemodialysis Interval history: 55-year-old male with history of diabetes and end-stage renal disease had a syncopal episode during dialysis. Post syncopal episode patient is confused. Patient also apparently had a low oxygen level. Patient has no memory of experiencing the syncopal episode or being brought to the hospital. Patient was in [facility] recently and was discharged. Patient was apparently diagnosed with COVID-19 1 week ago at [facility]. No chest pain. No fever. No chills. Generalized weakness present. No exacerbating or relieving factors. 08/12/2021 No active GI bleed For upper and lower endoscopy tomorrow Patient had 2 units of blood transfusion Patient's hemoglobin is 7.4 and 21 point after 2 units of blood transfusion Objective - Constitutional Vitals: Vital Signs - 12hr 08/12/21 08/12/21 10:00 11:34 Temperature 98.6 F Pulse Rate 86 Respiratory 18 Rate Blood Pressure 123/71 O2 Sat by Pulse 98 99 Oximetry General appearance: Present: no acute distress, well-nourished - EENT Eyes: PERRL, EOM intact ENT: hearing intact, clear oral mucosa Ears: bilateral: normal - Neck Neck: supple, normal ROM - Respiratory Respiratory effort: normal Respiratory: bilateral: CTA - Breasts Breasts: normal - Cardiovascular Heart rate: 78 Rhythm: regular Heart Sounds: Present: S1 & S2. Absent: gallop, rub Extremities: pulses intact, No edema, normal color, Full ROM - Gastrointestinal General gastrointestinal: Present: soft, non-tender, non-distended, normal bowel sounds - Genitourinary Male genitourinary: normal - Integumentary Integumentary: clear, warm, dry - Musculoskeletal Musculoskeletal: 1, strength equal bilaterally - Neurologic Neurologic: moves all extremities - Psychiatric Psychiatric: memory intact, appropriate mood/affect, intact judgment & insight - Labs CBC & Chem 7: 08/12/21 04:31 08/12/21 04:31 Labs: Abnormal lab results 08/09/21 08/12/21 08/12/21 Range/Units 15:42 04:31 04:31 RBC 2.23 L (3.65-5.03) M/mm3 Hgb 7.4 L (11.8-15.2) gm/dl Hct 21.5 L (35.5-45.6) % MCV 97 H (84-94) fl MCH 33 H (28-32) pg RDW 17.1 H (13.2-15.2) % Seg Neuts % (Manual) 87.0 H (40.0-70.0) % Lymphocytes % (Manual) 5.0 L (13.4-35.0) % Lymphocytes # (Manual) 0.4 L (1.2-5.4) K/mm3 BUN 55 H (9-20) mg/dL Creatinine 6.5 H (0.8-1.3) mg/dL Glucose 178 H (75-100) mg/dL Total Protein 6.2 L (6.3-8.2) g/dL Albumin 3.0 L (3.9-5) g/dL Crossmatch See Detail HEART Score - HEART Score Age: 45-65 Risk factors: > 3 risk factors or hx of atherosclerotic disease Troponin: Troponin T 0.349 ng/mL (0.00-0.029) H* 08/09/21 18:16 Troponin: 1-3x normal limit - Critical Actions Critical Actions: 0-3 pts:0.9-1.7%risk of adverse cardiac event.Candidate for discharge
[2021-08-13 09:53] LABS: Hematocrit 22.3 % (35.5-45.6); Hemoglobin 7.6 gm/dl (11.8-15.2)
[2021-08-13] MEDS: PANTOPRAZOLE 40 MG TAB PO SCH (10:00)
--- NOTE | 2021-08-13 10:25 | Progress Note ---
Assessment and Plan This is a 55 year old man who presents with loss of consciousness at end of HD # ESRD: continue //, PRBCs with HD prn; s/p HD 08/11/2021 , no issues noted - daily labs - renally dose meds - avoid nephrotoxins - renal diet # Anemia: last hemoglobin 6.1->5.6->7.4 > 7.6, agree with PRBCs prn, will continue ESAs with HD prn, monitor volume status closely # HTN: UF as tolerated. BP stable # Secondary Hyperparathyroidism: continue home binders as needed # COVID-19: management per primary Subjective Date of service: 08/13/21 Principal diagnosis: GI bleed and end-stage renal disease on hemodialysis Interval history: Patient is comfortable today. Scheduled for EGD and colonoscopy this morning. Denies any shortness of breath. Objective - Vital Signs Vital signs: Vital Signs - 12hr 08/13/21 05:00 Temperature 98.0 F Pulse Rate 96 H Respiratory 20 Rate Blood Pressure 138/62 O2 Sat by Pulse 87 Oximetry - General Appearance General appearance: well-developed, well-nourished, appears stated age EENT: PERRL, mucous membranes moist Neck: no JVD Respiratory: Present: Clear to Ascultation Cardiology: regular, normal heart rate Gastrointestinal: normal, normoactive bowel sounds Integumentary: no rash, other (No edema. AV fistula left forearm. Good bruit and thrill.) - Lab 08/13/21 09:28 08/12/21 04:31 Most recent lab results Calcium 8.5 mg/dL (8.4-10.2) 08/12/21 04:31 Magnesium 2.00 mg/dL (1.7-2.3) 08/09/21 13:36 Medications & Allergies - Medications Allergies/Adverse Reactions: Allergies No Known Allergies Allergy (Unverified 08/09/21 13:17) Home Medications: Home Medications Medication Instructions Recorded Confirmed Last Taken Type No Known Home Medications [No 08/11/21 08/11/21 Unknown History Reported Home Medications] Active Medications: Generic Name Dose Route Start Last Admin Trade Name Freq PRN Reason Stop Dose Admin Acetaminophen 650 mg 08/09/21 20:44 Acetaminophen 325 Mg Tab PO Q4H PRN Pain MILD(1-3)/Fever >100.5/LIN Hydromorphone HCl 0.5 mg 08/09/21 20:53 Hydromorphone 1 Mg/1 Ml Inj IV Q3H PRN Pain , Severe (7-10) Sodium Chloride 100 mls @ 999 mls/hr 08/10/21 10:05 Nacl 0.9% IV ARMANI PRN Hypotension Ondansetron HCl 4 mg 08/09/21 20:44 Ondansetron 4 Mg/2 Ml Inj IV Q8H PRN Nausea And Vomiting Oxycodone/Acetaminophen 1 tab 08/09/21 20:53 Oxycodone /Acetaminophen 5-325mg Tab PO Q6H PRN Pain, Moderate (4-6) Pantoprazole Sodium 40 mg 08/10/21 10:00 08/12/21 21:07 Pantoprazole 40 Mg Tab PO 40 mg BID SARAH Administration Sodium Chloride 10 ml 08/09/21 22:00 08/12/21 21:07 Sodium Chloride 0.9% 10 Ml Flush Syringe IV 10 ml BID SARAH Administration Sodium Chloride 10 ml 08/09/21 20:44 Sodium Chloride 0.9% 10 Ml Flush Syringe IV PRN PRN LINE FLUSH
--- NOTE | 2021-08-13 10:55 | Electrocardiograph Report ---
[facility] Test Date: 2021-08-11 Test Time: 07:42:19 Pat Name: KATELYN HOWARD Department: Room: A389 Gender: M Er Registrar: ANGEL : 1965 Requested By: ALBERTA PATRICIO Order Number: [id number] Reading MD: Chapito Govea Measurements Intervals [place] Rate: 85 P: 37 CT: 173 QRS: -6 QRSD: 94 T: 194 QT: 381 QTc: 454 Interpretive Statements Sinus rhythm Probable left atrial enlargement Abnormal T, consider ischemia, diffuse leads No previous ECG available for comparison Electronically Signed On 08-13-2021 10:54:39 EDT by Chapito Govea
[2021-08-13 12:13] LABS: Calcium 8.9 mg/dL (8.4-10.2)
[2021-08-13] MEDS ORDERED: SODIUM CHLORIDE 0.9% 1000 ML 1,000 ML ONE (12:57)
--- NOTE | 2021-08-13 13:27 | Anesthesia Consultation ---
Anesthesia Consult and Med Hx Date of service: 08/13/21 - Airway Anesthetic Teeth Evaluation: Good ROM Head & Neck: Adequate Mental/Hyoid Distance: Adequate Mallampati Class: Class II Intubation Access Assessment: Probably Good - Pre-Operative Health Status ASA Pre-Surgery Classification: ASA3 Proposed Anesthetic Plan: MAC - Cardiovascular System Hx Hypertension: Yes Hx Heart Attack/AMI: Yes - Endocrine Hx Renal Disease: Yes Hx End Stage Renal Disease: Yes Hx Non-Insulin Dependent Diabetes: Yes - Hematic Hx Anemia: Yes - Other Systems Hx Cancer: No Hx Obesity: Yes (BMI 34.0)
--- NOTE | 2021-08-13 13:28 | Anesthesia Day of Surgery ---
Anesthesia Day of Surgery - Day of Surgery Patient Examined: Yes Patient H&P Reviewed: Yes Patient is NPO: Yes
[2021-08-13] MEDS ORDERED: propofoL 200 MG/20 ML VIAL IV ONE ×2 (13:36→13:44)
--- NOTE | 2021-08-13 14:17 | Post Operative Note ---
Pre-op diagnosis: anemia Post-op diagnosis: same Findings: EGD: hiatal hernia - gastritis - nl sb (bx's) Colon: poor prep, completed - internal hemorrhoids Procedure: EGD/colonoscopy Anesthesia: MAC Surgeon: MARELY LAGUNA Estimated blood loss: none Pathology: list Specimen disposition: to lab Condition: stable Disposition: floor
[2021-08-13 14:29] VITALS: BP 156/84
--- NOTE | 2021-08-13 14:44 | Post Anesthesia Evaluation ---
- Post Anesthesia Evaluation Patient Participated: Yes Airway Patent: Yes Stable Respiratory Function: Yes Nausea/Vomiting: No Temp > 96.8F: Yes Pain Manageable: Yes Adequeate Hydration: Yes Anesthesia Complications: No
--- NOTE | 2021-08-13 16:28 | Discharge Summary ---
Providers - Providers Date of Admission: 08/09/21 18:12 Attending physician: LIONEL GALEANO MD 08/09/21 15:57 Consult to Physician [CONS] Urgent Comment: Consulting Provider: PK RIVERA Physician Instructions: Reason For Exam: dialysis, volume overload 08/09/21 16:13 Consult to Physician [CONS] Urgent Comment: Consulting Provider: OLIVIER FRANKLIN Physician Instructions: Reason For Exam: GI bleed 08/09/21 18:05 Consult to PICC Line RN [CONS] Urgent Reason For Exam: limited venous access and antibiotic infusion Type Line:: PICC Hospitalization Condition: Fair Hospital course: 55-year-old male with PMH of DM, ESRD x on hemodialysis 2 years and chronic anemia had a colonoscopy about 2 months ago as a part of work-up for kidney transplant was driven home from dialysis center by his on the day of admission. When he got home, according to his he appeared very weak and lethargic. She checked his pulse ox and his O2 sats were in the 80s and to ok him to ER for a checkup. Work-up showed hemoglobin 6.4 and stool was brown but tested positive for occult blood. Patient was given 2 units of PRBC with improvement of hemoglobin to 7.4. Patient denied having any history of GI bleed. He does not use NSAIDs he does not abuse alcohol. She never needed PRBC transfusions since on dialysis. Patient was seen by gastroenterology and underwent EGD which showed gastritis. Biopsies were taken. Colonoscopy was a poor bowel prep and showed just antral hemorrhoids. Patient remained hemodynamically stable and asymptomatic on the day of discharge. Gastroenterology cleared discharge. Patient will follow up as nephrology will continue a projections as well as iron supplementation and will periodically monitor hemoglobin. He will also his PCP in a week for routine follow-up. Discharge diagnosis Acute on chronic anemia needing to stop PRBC Stool brown but occult blood positive Colonoscopy approximately 2 months ago as a work-up for kidney transplant EGD during this admission showed gastritis and biopsies taken. Colonoscopy during this admission showed internal hemorrhoids only but bowel prep was poor. Diabetes mellitus ESRD on hemodialysis x2 years. Status at the time of discharge stable Diet: Renal/diabetes Activity: Progress as tolerated Disposition: Home Disposition: HOME / SELF CARE / HOMELESS Final Discharge Diagnosis (Prints w/discharge instructions): Acute on chronic anemia, received 2 units of PRBC. ESRD on hemodialysis. Stool brown but occult blood positive. EGD showed gastritis and a colonoscopy showed internal hemorrhoids. Diabetes mellitus. Hemodynamically stable Time spent for discharge: 35 minutes Core Measure Documentation - Palliative Care Palliative Care/ Comfort Measures: Not Applicable - Core Measures Any of the following diagnoses?: none Exam - Constitutional Vitals: Temp Pulse Resp BP Pulse Ox 97.2 F L 81 14 156/84 99 08/13/21 14:10 08/13/21 14:25 08/13/21 14:25 08/13/21 14:25 08/13/21 14:25 General appearance: Present: no acute distress, well-nourished - EENT Eyes: Present: PERRL. Absent: scleral icterus ENT: clear oral mucosa - Neck Neck: Present: supple - Respiratory Respiratory effort: normal Respiratory: bilateral: CTA - Cardiovascular Rhythm: regular - Extremities Extremities: No edema Peripheral Pulses: within normal limits - Abdominal General gastrointestinal: Present: soft, non-tender, normal bowel sounds - Integumentary Integumentary: Absent: rash - Musculoskeletal Musculoskeletal: strength equal bilaterally - Psychiatric Psychiatric: appropriate mood/affect - Neurologic Neurologic: no focal deficits Plan Activity: advance as tolerated Weight Bearing Status: Full Weight Bearing Diet: diabetic, renal Special Instructions: restrict fluid intake to (1500 mL) Follow up with: ROSALIO ENRIQUE [Other] - 3-5 Days
--- NOTE | 2021-08-13 19:37 | Operative Report ---
DATE OF SURGERY: 08/13/2021 PROCEDURE PERFORMED: Colonoscopy. INDICATION: 1. Anemia. 2. Gastrointestinal bleed. MEDICATIONS: Propofol per VANSTONE MACHINE OPERATOR. COMPLICATIONS: None. DESCRIPTION OF PROCEDURE: The patient was brought to the procedure suite. The patient had the procedure discussed with him at length. All risks, complications, and benefits discussed after which patient signed for the procedure to be performed. The patient was placed in left lateral decubitus position. Rectal exam performed prior to insertion of the scope. After adequate sedation with medications as above, scope was inserted in the rectum and brought to level of the cecum. Ileocecal valve, appendiceal orifice, cecal strap were visualized. Colonoscope was then removed and the mucosa visualized. Prep quality was poor, but the procedure was completed. The patient's vital signs remained stable throughout the procedure. FINDINGS: This was a poor prep procedure, though completed. Cannot rule out very small lesions. There are no obvious mass lesions or polyps noted during this procedure. There were no obvious sigmoid diverticula noted. Retroflexion view performed in the rectum showed small to medium internal hemorrhoids. The patient tolerated the procedure well. No complications during this procedure. IMPRESSION: 1. Poor prep, but procedure completed. 2. Internal hemorrhoids. 3. Otherwise, normal colonoscopy. RECOMMENDATIONS: 1. Follow hematocrit and transfuse as needed. 2. Advance diet. 3. Okay to discharge from GI standpoint. Will follow up as an outpatient. 4. Repeat colonoscopy for screening in 5 years. TID: [id number] RECEIPT: [id number] CAB/HOW/VIS
--- NOTE | 2021-08-14 03:18 | Operative Report ---
DATE OF SURGERY: 08/13/2021 DATE OF PROCEDURE: 08/13/2021 PROCEDURE: EGD with cold biopsy. INDICATION: 1. Anemia. 2. Gastrointestinal bleed. MEDICATIONS: Propofol per DOBBY LOOM WEAVER. COMPLICATIONS: None. DESCRIPTION OF PROCEDURE: The patient was brought to the procedure suite. The patient had the procedure discussed with him at length. All risks, complications, and benefits were discussed, after which the patient signed for the procedure to be performed. The patient was placed in left lateral decubitus position. Mouth block placed in the patient's oral cavity. After adequate sedation with medications as above, the endoscope was placed in the mouth and brought to the level of the second portion of duodenum. Retroflexion view performed. The patient's vital signs remained stable throughout the procedure. FINDINGS: There was an irregular Z line, probably from acid reflux with signs of possible short-segment Louise's noted at GE junction, 38 cm from the gums. Biopsies were taken and sent for pathology. There is a [id number] hiatal hernia noted at GE junction. The esophagus otherwise appeared normal. There was mild gastritis in the stomach. The stomach otherwise appeared to be normal. Duodenum appeared to be normal. Biopsies were taken of the small bowel and sent for pathology. Retroflexion view performed in the stomach showed no other pathology other than noted above. The patient tolerated the procedure well. No complication during the procedure. IMPRESSION: 1. Hiatal hernia. 2. Signs of acid reflux with possible Louise's with biopsies performed. 3. Otherwise, normal esophagus. 4. Mild gastritis in the stomach, but otherwise normal. 5. Normal small bowel biopsies performed. RECOMMENDATIONS: 1. Follow biopsy results. 2. Continue current treatment. 3. Antireflux diet. 4. Colonoscopy to follow with further recommendation based on colonoscopy results. TID: [id number] RECEIPT: [id number] VINCE/GUANACO/BRONSON STILES
== END 2021-08-13 16:30 | disposition home or self-care (01) | DRG 377 ==
LOC: ED 11:47 → 4A 18:12 → 3A 20:36
PROVIDERS: ADMIT Internal Medicine; ATTEND Internal Medicine
PROC: 30233N1 Transfusion of Nonautologous Red Blood Cells into Peripheral Vein, Percutaneous Approach (ICD-10-PCS; 2021-08-09)
PROC: 5A1D70Z Performance of Urinary Filtration, Intermittent, Less than 6 Hours Per Day (ICD-10-PCS; principal; 2021-08-11)
PROC: 0DB68ZX Excision of Stomach, Via Natural or Artificial Opening Endoscopic, Diagnostic (ICD-10-PCS; 2021-08-13)
PROC: 0DB88ZX Excision of Small Intestine, Via Natural or Artificial Opening Endoscopic, Diagnostic (ICD-10-PCS; 2021-08-13)
PROC: 0DJD8ZZ Inspection of Lower Intestinal Tract, Via Natural or Artificial Opening Endoscopic (ICD-10-PCS; 2021-08-13)
DX: K29.71 Gastritis, unspecified, with bleeding (principal); N18.6 End stage renal disease; J18.9 Pneumonia, unspecified organism; N25.81 Secondary hyperparathyroidism of renal origin; I25.10 Atherosclerotic heart disease of native coronary artery without angina pectoris; K63.5 Polyp of colon; Z20.822 Contact with and (suspected) exposure to COVID-19; K64.8 Other hemorrhoids; K44.9 Diaphragmatic hernia without obstruction or gangrene; D63.1 Anemia in chronic kidney disease; E78.5 Hyperlipidemia, unspecified; E11.22 Type 2 diabetes mellitus with diabetic chronic kidney disease; Z86.16 Personal history of COVID-19; Z79.899 Other long term (current) drug therapy
CPT/HCPCS: 36415; 36430; 70450; 71045; 71275; 80048; 80053; 80061; 80074; 80076; 80320; 82140; 82271; 82728; 82947; 82962; 83615; 83735; 84145; 84484; 85007; 85014; 85018; 85025; 85379; 85610; 85730; 86140; 86850; 86900; 86901; 86920; 88305; 93005; 93306; 93880; G0378; C9113; G0480; J0692; J0885; J2704; J3370; J7030; J7040; J7050; P9016; Q9967; U0003